=== PATIENT | female | born 1965 | race Caucasian/White ===

== ENCOUNTER → 2017-06-19 22:21 | Outpatient (CLI) | payer OTHER, SELFPAY | PROVIDERS: Family Provider Family Medicine; PCP Family Medicine; Visit Provider Internal Medicine Critical Care Medicine | DX: G47.33 Obstructive sleep apnea (adult) (pediatric) (principal) | CPT/HCPCS: 95810 ==

== ENCOUNTER → 2017-07-03 20:19 | Outpatient (CLI) | payer OTHER, SELFPAY | PROVIDERS: Family Provider Family Medicine; PCP Family Medicine; Visit Provider Internal Medicine Critical Care Medicine | DX: G47.33 Obstructive sleep apnea (adult) (pediatric) (principal) | CPT/HCPCS: 95811 ==

== ENCOUNTER → 2022-04-22 | Outpatient (CLI) | payer OTHER, SELFPAY ==
[2022-04-22 14:55] LABS: Absolute Lymphocyte Count 2.48 X10^3/uL (0.83-4.51); Absolute Neutrophil Count 4.8 X10^3/uL (2.0-7.7); Basophil# 0.02 X10^3/uL; Basophil% 0.3 % (0-1); Eosinophils% 1.3 % (0-5); Hematocrit 44.1 % (37-47); Hemoglobin 14.4 g/dL (12.0-15.0); Lymphocyte # 2.48 X10^3/ul (0.83-4.51); Lymphocyte % 31.4 % (19-41); Mean Corp Hgb Conc 32.7 g/dL (32-36); Mean Corpuscular Volume 88.9 fL (81-99); Mean Platelet Vol. 10.3 fl (6.2-12.0); Monocyte# 0.45 X10^3/uL; Monocyte% 5.7 % (0-10); NRBC Flagged by Analyzer 0 % (0-5); Neutrophil # 4.83 X10^3/uL (2.7-7.7); Neutrophil % 60.9 % (47-70); Platelet Count 208 K/mm3 (150-450); RBC Distribution Width SD 42.4 fl (35.1-43.9); Red Blood Count 4.96 M/mm3 (4.2-5.4); White Blood Count 7.9 K/mm3 (4.4-11.0)
[2022-04-22 15:09] LABS: International Normalized Ratio 1.1; Prothrombin Time (Protime)PT. 14.3 SECONDS (11.7-14.9)
[2022-04-22 15:16] LABS: Erythrocyte Sedimentation Rate 31 mm/hr (0-30)
[2022-04-22 15:42] LABS: Hemoglobin A1c 6.4 % (3.8-5.6)
[2022-04-22 16:13] LABS: HIV - WCH Non-Reactive (Nonreactive)
[2022-04-22 16:15] LABS: ALB/GLOB Ratio 0.7 RATIO (0.9-2.4); AST(SGOT) 102 U/L (15-37); Alanine Aminotransfer ALT/SGPT 186 U/L (13-56); Albumin, Serum 3.4 g/dL (3.2-5.0); Alkaline Phosphatase 85 U/L (45-117); Anion Gap 5 (5-15); BUN 10 mg/dL (7-18); BUN/Creat Ratio 14.9 RATIO (10-20); CRP 4.37 mg/L (0.0-3.0); Calcium,Total 8.5 mg/dL (8.5-10.1); Chloride 103 mmol/L (98-107); Creatinine, Serum 0.67 mg/dL (0.55-1.02); EST Glomerular Filtration Rate 97 mL/min (>60); Est Glom Filt Rate - Afr Amer 118 mL/min (>60); Ferritin 588 ng/mL (8-252); Globulin 4.6 g/dL (2.2-4.2); Glucose 239 mg/dL (74-106); LDH 203 U/L (84-246); Potassium 3.9 mmol/L (3.5-5.1); Sodium Level 137 mmol/L (136-145)
[2022-04-24 14:08] LABS: Anti-Centromere B Ab <0.2 AI (0.0-0.9); Anti-Chromatin <0.2 AI (0.0-0.9); Anti-Jo <0.2 AI (0.0-0.9); Anti-Scleroderma-70 AB <0.2 AI (0.0-0.9); RNP Ab 0.3 AI (0.0-0.9); SJOGREN'S Anti-SS-A test < 0.2 AI (0.0-0.9); SJOGREN'S Anti-SS-B test < 0.2 AI (0.0-0.9); Smith Ab <0.2 AI (0.0-0.9)
[2022-04-24 20:56] LABS: Anti-Mitochondrial AB <20.0 Units (0.0-20.0); Anti-dsDNA Ab <1 IU/mL (0-9)
[2022-04-30 09:07] LABS: Albumin 3.7 g/dL (2.9-4.4); Alpha-1-Globulins 0.3 g/dL (0.0-0.4); Alpha-2-Globulins 0.7 g/dL (0.4-1.0); Angiotensin Convert Enzyme 44 U/L (14-82); Ceruloplasmin 26.1 mg/dL (19.0-39.0); Cytoplasmic Ab (C-ANCA) <1:20 titer (Neg:<1:20); Gamma Globulin 1.5 g/dL (0.4-1.8); HEPATITIS B SURFACE AG Negative (Negative); Hep C Antibodies <0.1 s/co ratio (0.0-0.9); Hepatitis A IgM Antibody Negative (Negative); Hepatitis B Core AB IgM Negative (Negative); Immunoglobulin A 399 mg/dL (87-352); Immunoglobulin G 1533 mg/dL (586-1602); Immunoglobulin M 110 mg/dL (26-217); PROEL- TOTAL PROTEIN 7.3 g/dL (6.0-8.5)
[2022-04-30 10:48] LABS: AFP, Tumor Marker 6.5 ng/mL (0.0-9.2); Anti-Smooth Muscle ABS 13 Units (0-19); Copper, Serum or Plasma 109 ug/dL (80-158); Haptoglobin 116 mg/dL (33-346); IMMUNOFIXATION RESULT,S Comment: (.); Perinuclear Ab (P-ANCA) <1:20 titer (Neg:<1:20)
== END | disposition home or self-care (01) ==
PROVIDERS: PCP Physician Assistant; Visit Provider Internal Medicine Gastroenterology
DX: R79.89 Other specified abnormal findings of blood chemistry (principal)
CPT/HCPCS: 36415; 80053; 80074; 82105; 82140; 82164; 82390; 82525; 82728; 82784; 83010; 83036; 83516; 83615; 84165; 85025; 85610; 85652; 86140; 86225; 86235; 86256; 86334; 86703

== ENCOUNTER → 2022-05-10 | Outpatient (CLI) | payer OTHER, SELFPAY ==
--- NOTE | 2022-05-10 09:57 | US_ITS ---
STUDY: ABDOMINAL ULTRASOUND - ELASTOGRAPHY REASON FOR VISIT: Female, 57 years old. Hepatomegaly and fatty infiltration of the liver. TECHNIQUE: Liver stiffness measurements were obtained on a [employer]dc[employer] RS 85 ultrasound machine using a CA 1-7 probe following the SRU guidelines. 3 measurements were obtained using a 2-D-SWE method. TheIQR/M was 19 % suggesting a quality data set. TECHNICAL QUALITY: Adequate. COMPARISON: Comparison is made with prior study done earlier today. FINDINGS: Liver: Hepatomegaly and fatty infiltration of the liver. Median liver stiffness measured 14 kPa. US/Elastography Parenchyma/Organ IMPRESSION: Liver stiffness measures 14 kPa compatible with F3-F4 (Moderate to severe liver fibrosis) Metavir score. Electronically Signed: Timoteo Hernandez MD at 14:04 EST ,
--- NOTE | 2022-05-10 09:57 | US_ITS ---
STUDY: ABDOMINAL ULTRASOUND - RIGHT UPPER QUADRANT REASON FOR VISIT: Female, 57 years old . Abnormal liver function tests. TECHNIQUE: Ultrasound evaluation of the right upper quadrant was performed with real-time and static staley-scale imaging. TECHNICAL QUALITY: Adequate. COMPARISON: None. FINDINGS: Liver: The liver is enlarged and measures 19.8 cm. There is increased echogenicity consistent with fatty infiltration. The bile ducts are within normal limits. There is hepatic color flow. The direction of portal flow is hepatopetal. There is no demonstrated mass lesion. Gallbladder: The patient is status post cholecystectomy. Common Bile Duct (C.B.D.): The common bile duct measures 3.3 mm. Pancreas: Normal size of the head, body and tail of the pancreas. There is increased echogenicity of the pancreas. There is no demonstrated pancreatic mass or cyst. Right Kidney: Normal size of the right kidney. The right kidney measures 10.6 cm x 4.7 cm x 4.2 cm. Normal renal cortex. The right cortex measures 1.8 cm. There is no demonstrated renal mass or cyst. There is no right hydronephrosis. US/Abdomen Limited IMPRESSION: Hepatomegaly and diffuse fatty infiltration of the liver. Electronically Signed: Timoteo Hernandez MD at 14:03 EST ,
== END | disposition home or self-care (01) ==
PROVIDERS: PCP Physician Assistant; Visit Provider Internal Medicine Gastroenterology
DX: R79.89 Other specified abnormal findings of blood chemistry (principal)
CPT/HCPCS: 76705; 76981

== ENCOUNTER 2022-06-20 10:50 | Day surgery (SDC) | payer OTHER, SELFPAY ==
[2022-06-20] VITALS (7 sets, daily range): BP systolic 90–138; BP diastolic 69–95; PULSE 76–85; RESP 18; TEMP 36.2–36.6; O2SAT 92–95; BMI 58.7
[2022-06-20] MEDS: Lactated Ringers 1,000 ML 15 ML IV (11:42)
[2022-06-20 12:10] LABS: Bedside Glucose 102 mg/dL (74-106)
--- NOTE | 2022-06-20 12:29 | PCM.HP.BLA ---
History and Physical Date of Admission: 06/20/22 PATTI DOSS, is a 57 F who presents to the office today for Initial consult. Patti established with this clinic 04.15.22 with referral from her PCP for evaluation of persistent elevated LFT. Values at referral time ALT 133, AST 77, alk phos and lipid profile WNL. CT abd/pel at [facility] 01.08.21 with normal liver findings. PMH DMII (A1c 6.2 6.27.22); acid reflux; psoriatic arthritis (Humira start , prior to this she was using Tremfya for 6 months; HTN ([place] [facility]) ROS Const Constitutional: No anorexia, fatigue, fever(s), weight change or sleep problems Eyes Eyes: No change in vision ENT ENT: No abnormal hearing, difficulty swallowing, mouth lesions, tongue swelling or throat swelling Resp Respiratory: No cough or shortness of breath Cardio Cardiology: No chest pain at rest, chest pain with exertion, shortness of breath or dyspnea on exertion Gastro GI: No difficulty swallowing Genitourinary-Female: No difficulty urinating or burning urination Musc Musculoskeletal: No joint pain, joint swelling, muscle weakness or decreased muscle mass Skin Skin: No hair loss in leg, yellowing of the eye, itchy eyes, rash, skin ulcer or skin swelling Neuro Neurology: No abnormal hearing, abnormal movements, confusion, unsteady gait/balance or memory loss Psych Psychiatric: No anxiety, No confusion and No memory loss Endo Endocrine: No fatigue or weight change Aller/Imm Allergy/Immunologic: No itchy eyes, throat swelling or tongue swelling Everardo/Lymp Hematologic/Lymphatic: No easy bleeding, easy bruising or enlarged lymph nodes Exam Const General: cooperative and comfortable Nutritional Appearance: average body habitus and well nourished [facility] Head: normal to inspection Ears: hearing grossly normal bilaterally Nose: external nose normal Face and sinus: normal facial exam Mouth: oral mucosae normal Throat: posterior oropharynx normal Eyes General: appearance normal, both eyes and all related structures Neck Neck: normal visual inspection Chest Chest palpation & inspection: normal inspection of the chest and normal palpation of entire chest wall Resp Effort & Inspection: normal respiratory effort Auscultation: Bilateral: Clear to Auscultation Cardio Palpation: normal PMI Rate: regular rate Rhythm: regular rhythm GI Inspection: normal to inspection Auscultation: normal bowel sounds Percussion: normal to percussion Palpation: no hepatosplenomegaly Skin General: no rashes or lesions noted Neuro General: patient alert Extrem General: normal to inspection Psych Affect: normal affect Quality Reporting Tobacco Screening ([facility] 138) Smoking Status: Former smoker Assessment and Plan Assessment and Plan (1) LFT elevation: ?Status:?Acute ?Plan: The liver has a significant role in metabolism, digestion, detoxification, and elimination of substances from the body. The liver function tests typically include alanine transaminase (ALT) and aspartate transaminase (AST), alkaline phosphatase (ALP), gamma-glutamyl transferase (GGT), serum bilirubin, prothrombin time (PT), the international normalized ratio (INR), total protein and albumin. These tests can help determine an area of the liver where damage may be taking place and, depending on the pattern of elevation, can help organize a differential diagnosis. Elevations in ALT and AST disproportion to elevations in alkaline phosphatase and bilirubin denote hepatocellular disease. An elevation in alkaline phosphatase and bilirubin in disproportion to ALT and AST would characterize a cholestatic pattern. The actual function of the liver can be graded based on its ability to produce albumin as well as vitamin K-dependent clotting factors. Her liver function test are normal which is a good sign. Aminotransferase?includes AST and ALT. They are markers of hepatocellular injury. They participate in gluconeogenesis by catalyzing the transfer of amino groups from aspartic acid or alanine to ketoglutaric acid to produce oxaloacetic acid and pyruvic acid, respectively. AST is present as cytosolic and mitochondrial isoenzymes and is found in the liver, cardiac muscle, skeletal muscle, kidneys, brain, pancreas, lungs, leucocytes, and red cells. It is?not as sensitive or specific for the liver as ALT, and elevation in AST may be seen as secondary to nonhepatic causes as well.?AST activity in neonates and infants is approximately twice that in adults, but these decline to adult levels by approximately six months. ALT is a cytosolic enzyme that is found in high concentrations in the liver. The half-life of ALT is?approximately 47 ? 10 hours. ALT is usually higher than AST in most types of liver disease in which the activity of both enzymes is predominantly from the hepatocyte cytosol. Hepatocellular injury and not necessarily cell triggers the release of these enzymes into circulation.?Both AST and ALT values are higher in normal males than females.They also correlate with obesity with a normal reference range higher in those with higher body mass index. She does not drink any alcohol she does not have any family history of liver disease.? I did discuss with her that she may need a? liver biopsy, depending on the FibroScan biochemical work-up. (2) GERD (gastroesophageal reflux disease): ?Status:?Acute ?Plan: She will undergo an evaluation of her upper GI tract to see if she has an changes in stomach that may indicate chronic liver disease. We also evaluate her for Kim's esophagus. ? ? ? Orders: Orders HIV - [facility] Today R79.89 - Other specified abnormal findings of blood chemistry ? Comprehensive Metabolic Profil Today R79.89 - Other specified abnormal findings of blood chemistry ? CRP Today R79.89 - Other specified abnormal findings of blood chemistry ? Ferritin Today R79.89 - Other specified abnormal findings of blood chemistry ? LDH Today R79.89 - Other specified abnormal findings of blood chemistry ? Hemoglobin A1c Today R79.89 - Other specified abnormal findings of blood chemistry ? Prothrombin Time w/INR Today R79.89 - Other specified abnormal findings of blood chemistry ? CBC W/Diff, Automated Today R79.89 - Other specified abnormal findings of blood chemistry ? Erythrocyte Sed Rate Today R79.89 - Other specified abnormal findings of blood chemistry ? Anti-Mitochondrial AB Today R79.89 - Other specified abnormal findings of blood chemistry ? KD Comprehensive Panel Today R79.89 - Other specified abnormal findings of blood chemistry ? Hepatitis Panel Acute Today R79.89 - Other specified abnormal findings of blood chemistry ? Angiotensin Convert Enzyme Today R79.89 - Other specified abnormal findings of blood chemistry ? AFP, Tumor Marker Today R79.89 - Other specified abnormal findings of blood chemistry ? ANCA Today R79.89 - Other specified abnormal findings of blood chemistry ? Anti-Smooth Muscle ABS Today R79.89 - Other specified abnormal findings of blood chemistry ? Ceruloplasmin Today R79.89 - Other specified abnormal findings of blood chemistry ? Copper, Serum or Plasma Today R79.89 - Other specified abnormal findings of blood chemistry ? Haptoglobin Today R79.89 - Other specified abnormal findings of blood chemistry ? Ammonia Today R79.89 - Other specified abnormal findings of blood chemistry ? Abdomen Limited Today R79.89 - Other specified abnormal findings of blood chemistry ? Elastography Parenchyma/Organ Today R79.89 - Other specified abnormal findings of blood chemistry ? PAOLA + Protein Elect, Serum Today R79.89 - Other specified abnormal findings of blood chemistry ? Medications: Discontinued tramadol ?? Discontinued Reason:? Order Completed 50 mg? PO Q4H PRN pain ? ? aspirin ?? Discontinued Reason:? Order Completed 81 mg? PO QDAY ? ? cholecalciferol (vitamin D3) ?? Discontinued Reason:? Order Completed 1,000 units? PO ONCE ? ? I have examined the patient and the H&P has been reviewed. There are no clinical changes since date of exam.
--- NOTE | 2022-06-20 12:30 | IMM_PTH ---
PATIENT: SHARA DOSS LOC: EN U#:[id number] AGE/SX: 57/F ROOM: RE06/20/[address]: Dr. Aman Bruce DO : 1965 BED: DIS: 06/20/2022 SPEC #: [id number] RECD: 06/20/22 14:21 STATUS: HARVEY REQ #: [id number] GILA: 06/20/22 12:[address]: Aman Bruce DEPT: IMMUNOHISTOCHEMISTRY RECD BY: Jessi Madrigal ENTERED: 06/20/22 14:21 SP TYPE: IMMUNO OTHR DR: ANGELES Ferrell Tissues: B - Stomach, NOS Procedures: H Pylori (initial) PHYSICIAN & INSTITUTION [place] [address] SPECIMEN INFORMATION: Tissue Source: B ? Gastric body biopsy Clinical Info: LEFT elevation, GERD Specimen Number: [id number] CPT code: 21444 METHODOLOGY: Deparaffinized sections of prefer/formalin-fixed tissue or PAP/DQ stained slides are incubated with monoclonal/polyclonal antibodies/oligonucleotide probes. Localization is made via biotin free immunoperoxidase method. Appropriate controls are performed and reacted as expected. Results on target cell population are indicated in the following table: RESULTS: ANTIBODY / CLONE RESULT Block B H Pylori (polyclonal) negative These tests were developed and their performance characteristics determined by [facility]. They may not have been cleared or approved by the U.S. Food and Drug Administration. The FDA has determined that such clearance or approval is not necessary. The above immunohistochemical/dualISH markers are ordered and reviewed by the Pathologist. INTERPRETATION: B. Gastric body, biopsy: Negative for Helicobacter pylori organisms. AM:saba 06/21/2022
--- NOTE | 2022-06-20 12:30 | EGD_PTH ---
PATIENT: SHARA DOSS LOC: EN U#:[id number] AGE/SX: 57/F ROOM: RE06/20/[address]: Dr. Aman Bruce DO : 1965 BED: DIS: 06/20/2022 SPEC #: [id number] RECD: 06/20/22 13:34 STATUS: HARVEY REAnnie #: [id number] GILA: 06/20/22 12:[address]: Aman Bruce DEPT: SURGICAL PATHOLOGY RECD BY: Nellie Fernandez ENTERED: 06/20/22 14:03 SP TYPE: EGD BIOPSY OT DR: ANGELES Ferrell Tissues: A - Duodenum, NOS B - Gastric mucous membrane Procedures: Surgery Specimen Level IV HEADER OPERATION: [place] [place] biopsies PRE-OP DIAGNOSIS: LFT elevation, GERD TISSUE SUBMITTED: A ? Duodenum biopsy, B ? Gastric body biopsy MICROSCOPIC DIAGNOSIS A. Duodenum, biopsy: Fragments of duodenal mucosa, no pathologic diagnosis. B. Gastric body, biopsy: Mild gastritis. See microscopic description and comment. ELISABET:saba 06/21/2022 COMMENT B. The results of immunohistochemistry for Helicobacter pylori will be reported separately ([id number]). MICROSCOPIC DESCRIPTION Slides are reviewed. B. The specimen shows fragments of gastric mucosa with chronic inflammatory cell infiltrates in the lamina propria consisting of lymphocytes and plasma cells, consistent with mild chronic gastritis. GROSS DESCRIPTION A - Received in fixative is one container labeled with the patient's name and designated duodenal biopsy. The specimen consists of two irregular fragments of light montemayor soft tissue that in aggregate measure 0.6 x 0.3 x 0.1 cm. The specimen is totally submitted in one cassette. B - Received in fixative is one container labeled with the patient's name and designated gastric body biopsy. The specimen consists of multiple irregular fragments of light montemayor soft tissue that in aggregate measure 1.0 x 0.3 x 0.1 cm. The specimen is totally submitted in one cassette. / ELISABET:saba 06/20/2022 TC:3 CPT: 48908 x2
--- NOTE | 2022-06-20 12:47 | OP.EGD_ITS ---
Patient Name: Patti Gage Procedure Date: 06/20/2022 12:27 PM Date of : 1965 Age: 57 Procedure: Upper GI endoscopy Indications: Dyspepsia, Heartburn, Suspected esophageal reflux Providers: Aman Bruce DO Medicines: Monitored Anesthesia Care Patient Profile: This is a 57 year old female. Refer to note in patient chart for documentation of history and physical. Patient has symptoms of chronic epigastric abdominal pain, chronic dyspepsia and chronic nausea. Complications: No immediate complications. Procedure: Pre-Anesthesia Assessment: - Prior to the procedure, a History and Physical was performed, and patient medications and allergies were reviewed. The patient is competent. The risks and benefits of the procedure and the sedation options and risks were discussed with the patient. All questions were answered and informed consent was obtained. Patient identification and proposed procedure were verified by the physician in the pre-procedure area. Mental Status Examination: alert and oriented. Airway Examination: normal oropharyngeal airway and neck mobility. Respiratory Examination: clear to auscultation. CV Examination: normal. Prophylactic Antibiotics: The patient does not require prophylactic antibiotics. Prior Anticoagulants: The patient has taken no previous anticoagulant or antiplatelet agents. After reviewing the risks and benefits, the patient was deemed in satisfactory condition to undergo the procedure. The anesthesia plan was to use monitored anesthesia care (MAC). Immediately prior to administration of medications, the patient was re-assessed for adequacy to receive sedatives. The heart rate, respiratory rate, oxygen saturations, blood pressure, adequacy of pulmonary ventilation, and response to care were monitored throughout the procedure. The physical status of the patient was re-assessed after the procedure. After obtaining informed consent, the endoscope was passed under direct vision. Throughout the procedure, the patient's blood pressure, pulse, and oxygen saturations were monitored continuously. The Endoscope was introduced through the mouth, and advanced to the second part of duodenum. The upper GI endoscopy was accomplished without difficulty. The patient tolerated the procedure well. Scope In: 12:34:19 PM Scope Out: 12:38:50 PM Total Procedure Duration Time 0 hours 4 minutes 31 seconds Findings: LA Grade A (one or more mucosal breaks less than 5 mm, not extending between tops of 2 mucosal folds) esophagitis with no bleeding was found 35 to 36 cm from the incisors. Moderate portal hypertensive gastropathy was found in the stomach. Diffuse bile gastritis was also seen. Biopsies were taken with a cold forceps for histology. Verification of patient identification for the specimen was done. Estimated blood loss was minimal. Patchy mildly erythematous mucosa without active bleeding and with no stigmata of bleeding was found in the duodenal bulb. Biopsies were taken with a cold forceps for histology. Verification of patient identification for the specimen was done. Estimated blood loss was minimal. Impression: - LA Grade A reflux esophagitis. -Bile gastritis iopsied. - Erythematous duodenopathy. Biopsied. Recommendation: - Discharge patient to home. - Resume previous diet. - Continue present medications. - Await pathology results. Procedure Code(s): --- Professional --- 67039, Esophagogastroduodenoscopy, flexible, transoral; with biopsy, single or multiple CPT copyright 2017 [employer]. All rights reserved. The codes documented in this report are preliminary and upon agriculture professor review may be revised to meet current compliance requirements. Aman Bruce DO 06/20/2022 12:47:16 PM This report has been signed electronically. Number of Addenda: 0 Note Initiated On: 06/20/2022 12:27 PM
--- NOTE | 2022-06-20 12:48 | OP.CCLET_ITS ---
06/20/2022 Ema Swift Re : Upper GI endoscopy procedure for Patti Gage Deakim Swift This procedure was performed on June. My impressions and recommendations are as follows: Impressions : - LA Grade A reflux esophagitis. -Bile gastritis iopsied. - Erythematous duodenopathy. Biopsied. Recommendations : - Discharge patient to home. - Resume previous diet. - Continue present medications. - Await pathology results. My findings are described in the full procedure note, which is enclosed. If I can be of further assistance, please feel free to contact me at . Sincerely, Aman Bruce, 06/20/2022 12:47:16 PM This report has been signed electronically.
== END 2022-06-20 13:35 | disposition home or self-care (01) ==
LOC: EN 10:53 → AC 10:55
PROVIDERS: PCP Physician Assistant; Referring Provider Internal Medicine Gastroenterology; Visit Provider Internal Medicine Gastroenterology
PROC: 0DJ08ZZ Inspection of Upper Intestinal Tract, Via Natural or Artificial Opening Endoscopic (ICD-10-PCS; CPT 43235; principal; 2022-06-20 12:25)
DX: K31.89 Other diseases of stomach and duodenum (principal); J44.9 Chronic obstructive pulmonary disease, unspecified; E11.9 Type 2 diabetes mellitus without complications; K21.00 Gastro-esophageal reflux disease with esophagitis, without bleeding; K29.70 Gastritis, unspecified, without bleeding; I10 Essential (primary) hypertension; G47.33 Obstructive sleep apnea (adult) (pediatric); Z79.899 Other long term (current) drug therapy; Z79.84 Long term (current) use of oral hypoglycemic drugs; Z87.891 Personal history of nicotine dependence
CPT/HCPCS: 43239; 82962; 88305; 88342; J7120

== ENCOUNTER 2022-06-28 07:44 | Outpatient (CLI) | payer OTHER, SELFPAY ==
[2022-06-28] VITALS (9 sets, daily range): BP systolic 120–149; BP diastolic 74–95; PULSE 72–85; RESP 14–20; TEMP 36.6; O2SAT 91–97; BMI 54.5
--- NOTE | 2022-06-28 | LIV_PTH ---
PATIENT: SHARA DOSS LOC: CT U#:[id number] AGE/SX: 57/F ROOM: RE06/28/[address]: Dr. Aman Bruce DO : 1965 BED: DIS: 06/28/2022 SPEC #: [id number] RECD: 06/28/22 09:53 STATUS: HARVEY REQ #: [id number] GILA: 06/28/22 00:[address]: Aman Bruce DEPT: SURGICAL PATHOLOGY RECD BY: Micah Marti ENTERED: 06/28/22 09:53 SP TYPE: LIVER RES OTHR DR: ANGELES Ferrell Tissues: Liver, NOS Procedures: PAS with Diastase (control) Trichrome (control) Special Stain Group II PAS Stain (control) Surgery Specimen Level V Retic (control) Iron Stain (control) HEADER OPERATION: CT-guided liver biopsy PRE-OP DIAGNOSIS: Liver disease TISSUE SUBMITTED: Liver 18-gauge x3 MICROSCOPIC DIAGNOSIS Liver, CT-guided core biopsy: Consistent with cirrhosis. Extensive macro- and microvesicular steatosis. See microscopic description and comment. Ysabel 07/01/2022 COMMENT Correlation with clinical, radiologic, laboratory findings and appropriate follow up are necessary. MICROSCOPIC DESCRIPTION Slides are reviewed. The specimen shows liver parenchymal tissue with distortion of normal lobular architecture into multiple nodules. Hepatocytes in the nodule show extensive macro- and microvesicular steatosis. Fibrous septae in between the nodules show moderate chronic inflammation. Focal interface inflammation is also noted. Iron stain shows focal iron deposit (1+) in the hepatocytes. Reticulin and trichrome stains highlight the fibrous septae in between the hepatocyte nodules. PAS and PASD stains do not show any abnormal accumulation of protein. All stains are performed with appropriate matched controls GROSS DESCRIPTION Received is one container labeled with the patient's name and not further designated. The specimen consists of multiple elongated fragments of montemayor soft tissue that in aggregate measure 1.5 x 0.3 x 0.1 cm. The specimen is totally submitted in one cassette. / ELISABET:saba 06/28/2022 TC:5 CPT: 88655, 79072 x5
--- NOTE | 2022-06-28 07:54 | CT_ITS ---
PROCEDURE: CT DIRECTED CORE LIVER BIOPSY INDICATION: Female, 57 years old. Hepatomegaly and fatty infiltration of the liver. PHYSICIAN: CONSENT: Written informed consent was obtained having explained the risks, benefits and alternatives in detail with the patient who accepted the risks and agreed to proceed. Laboratory review and clinical assessment was performed. CONSCIOUS SEDATION PROTOCOL: The Drugs used were: 2 mg Versed, IV., and 50 mcg Fentanyl, IV. The sedation time was: 17 minutes. Conscious sedation was started at 9:06 AM and terminated at 9:23 AM. The conscious sedation protocol was independently monitored. RADIATION DOSAGE (If Supplied By Facility): CTDIvol = ( 42 ) mGy, DLP = ( 911.34 ) mGycm Individualized dose optimization techniques were used for this CT. TECHNIQUE: Using CT image guidance with image documentation, a suitable location in the left lobe of the liver was identified. Using an anterior approach, puncture of the liver was uneventful with an 18-gauge core needle system. 3, 18-gauge core samples were obtained, and submitted in formalin to the pathologist for further assessment. Followup CT scan revealed no distinct sequelae. CT/Biopsy/Inj or Needle Placement IMPRESSION: 1. CT directed core needle biopsy of the liver, using CT image guidance with image documentation as described. 2. Conscious Sedation protocol utilized with independent monitoring. Electronically Signed: Timoteo Hernandez MD at 9:42 EST ,
[2022-06-28 07:57] LABS: Platelet Count 185 K/mm3 (150-450)
[2022-06-28 08:48] LABS: International Normalized Ratio 1.1; Prothrombin Time (Protime)PT. 13.9 SECONDS (11.7-14.9)
[2022-06-28] MEDS: Midazolam 2 MG/2 ML Syringe IV (09:06)
[2022-06-28] MEDS: fentaNYL 100 MCG/2 ML Ampul IV (09:06)
[2022-06-28] MEDS: Lidocaine 2% (20 ml mdv) 20 ML Vial INFILT (09:21)
== END 2022-06-28 23:59 | disposition home or self-care (01) ==
PROVIDERS: PCP Physician Assistant; Referring Provider Internal Medicine Gastroenterology; Visit Provider Internal Medicine Gastroenterology
DX: K76.0 Fatty (change of) liver, not elsewhere classified (principal); J44.9 Chronic obstructive pulmonary disease, unspecified; E11.9 Type 2 diabetes mellitus without complications; K21.9 Gastro-esophageal reflux disease without esophagitis; Z79.84 Long term (current) use of oral hypoglycemic drugs; Z87.891 Personal history of nicotine dependence
CPT/HCPCS: 47000; 36415; 77012; 85049; 85610; 85730; 88307; 88313; 99156; J7050; A4216

== ENCOUNTER → 2022-07-10 | Outpatient (CLI) | payer OTHER, SELFPAY ==
[2022-07-10 16:39] LABS: Absolute Lymphocyte Count 3.91 X10^3/uL (0.83-4.51); Absolute Neutrophil Count 4.4 X10^3/uL (2.0-7.7); Basophil# 0.01 X10^3/uL; Basophil% 0.1 % (0-1); Eosinophil# 0.16 X10^3/uL; Eosinophils% 1.8 % (0-5); Hematocrit 44.2 % (37-47); Hemoglobin 15.2 g/dL (12.0-15.0); Lymphocyte # 3.91 X10^3/ul (0.83-4.51); Mean Corp Hgb Conc 34.4 g/dL (32-36); Mean Corpuscular Hgb 29.5 pg (27.0-32.0); Mean Corpuscular Volume 85.8 fL (81-99); Mean Platelet Vol. 9.8 fl (6.2-12.0); Monocyte# 0.59 X10^3/uL; Monocyte% 6.5 % (0-10); NRBC Flagged by Analyzer 0 % (0-5); Neutrophil % 48.3 % (47-70); Platelet Count 235 K/mm3 (150-450); RBC Distribution Width CV 12.6 % (11.6-14.6); RBC Distribution Width SD 39.6 fl (35.1-43.9); Red Blood Count 5.15 M/mm3 (4.2-5.4); White Blood Count 9.1 K/mm3 (4.4-11.0)
[2022-07-10 16:54] LABS: Erythrocyte Sedimentation Rate 46 mm/hr (0-30)
[2022-07-10 17:00] LABS: Prothrombin Time (Protime)PT. 13.2 SECONDS (11.7-14.9)
[2022-07-10 17:26] LABS: ALB/GLOB Ratio 0.8 RATIO (0.9-2.4); AST(SGOT) 73 U/L (15-37); Alanine Aminotransfer ALT/SGPT 134 U/L (13-56); Albumin, Serum 3.8 g/dL (3.2-5.0); Alkaline Phosphatase 94 U/L (45-117); Anion Gap 7 (5-15); BUN 16 mg/dL (7-18); BUN/Creat Ratio 25.9 RATIO (10-20); CRP 9.68 mg/L (0.0-3.0); Calcium,Total 9.6 mg/dL (8.5-10.1); Chloride 102 mmol/L (98-107); Creatinine, Serum 0.62 mg/dL (0.55-1.02); EST Glomerular Filtration Rate 107 mL/min (>60); Est Glom Filt Rate - Afr Amer 129 mL/min (>60); Globulin 4.8 g/dL (2.2-4.2); Glucose 105 mg/dL (74-106); LDH 197 U/L (84-246); Potassium 3.8 mmol/L (3.5-5.1); Protein, Total 8.6 g/dL (6.4-8.2); Sodium Level 137 mmol/L (136-145)
== END | disposition home or self-care (01) ==
LOC: LAB 16:18
PROVIDERS: PCP Physician Assistant; Visit Provider Nurse Practitioner Adult Health
DX: K74.60 Unspecified cirrhosis of liver (principal)
CPT/HCPCS: 36415; 80053; 82140; 83615; 85025; 85610; 85652; 86140

== ENCOUNTER → 2022-10-18 | Outpatient (CLI) | payer OTHER, SELFPAY ==
[2022-10-18 11:53] LABS: Erythrocyte Sedimentation Rate 41 mm/hr (0-30)
[2022-10-18 11:55] LABS: Absolute Lymphocyte Count 1.84 X10^3/uL (0.83-4.51); Absolute Neutrophil Count 6.5 X10^3/uL (2.0-7.7); Basophil# 0.02 X10^3/uL; Basophil% 0.2 % (0-1); Eosinophil# 0.22 X10^3/uL; Eosinophils% 2.5 % (0-5); Hematocrit 44.2 % (37-47); Hemoglobin 14.5 g/dL (12.0-15.0); Lymphocyte # 1.84 X10^3/ul (0.83-4.51); Lymphocyte % 20.6 % (19-41); Mean Corp Hgb Conc 32.8 g/dL (32-36); Mean Corpuscular Hgb 28.8 pg (27.0-32.0); Mean Corpuscular Volume 87.7 fL (81-99); Mean Platelet Vol. 9.5 fl (6.2-12.0); Monocyte# 0.38 X10^3/uL; Monocyte% 4.2 % (0-10); NRBC Flagged by Analyzer 0 % (0-5); Neutrophil # 6.45 X10^3/uL (2.7-7.7); Neutrophil % 72.1 % (47-70); Platelet Count 240 K/mm3 (150-450); RBC Distribution Width CV 13.3 % (11.6-14.6); RBC Distribution Width SD 42.7 fl (35.1-43.9); Red Blood Count 5.04 M/mm3 (4.2-5.4)
[2022-10-18 12:00] LABS: Prothrombin Time (Protime)PT. 13.4 SECONDS (11.7-14.9)
[2022-10-18 12:19] LABS: ALB/GLOB Ratio 0.7 RATIO (0.9-2.4); AST(SGOT) 25 U/L (15-37); Alanine Aminotransfer ALT/SGPT 44 U/L (13-56); Albumin, Serum 3.4 g/dL (3.2-5.0); Alkaline Phosphatase 76 U/L (45-117); Anion Gap 7 (5-15); BUN 15 mg/dL (7-18); BUN/Creat Ratio 26.2 RATIO (10-20); CRP 9.29 mg/L (0.0-3.0); Calcium,Total 9.3 mg/dL (8.5-10.1); Chloride 104 mmol/L (98-107); Creatinine, Serum 0.57 mg/dL (0.55-1.02); EST Glomerular Filtration Rate 116 mL/min (>60); Est Glom Filt Rate - Afr Amer 141 mL/min (>60); Globulin 4.9 g/dL (2.2-4.2); Glucose 143 mg/dL (74-106); LDH 199 U/L (84-246); Potassium 3.9 mmol/L (3.5-5.1); Protein, Total 8.3 g/dL (6.4-8.2); Sodium Level 138 mmol/L (136-145)
[2022-10-18 12:55] LABS: Hemoglobin A1c 5.9 % (3.8-5.6)
== END | disposition home or self-care (01) ==
LOC: LAB 11:07
PROVIDERS: PCP Physician Assistant; Referring Provider Internal Medicine Gastroenterology; Visit Provider Internal Medicine Gastroenterology
DX: K74.60 Unspecified cirrhosis of liver (principal)
CPT/HCPCS: 36415; 80053; 82140; 83036; 83615; 85025; 85610; 85652; 86140

== ENCOUNTER → 2023-01-31 | Outpatient (CLI) | payer OTHER, SELFPAY ==
--- NOTE | 2023-02-02 05:41 | PFTCOMP_ITS ---
COMPLETE PULMONARY FUNCTION TEST INTERPRETATION Brief HPI: Patient is a 57-year-old female, currently under the care of Kavita Haney, who presents to [facility] for complete pulmonary function tests secondary to diagnosis of dyspnea. Respiratory therapist reports good effort and reproducible results. Interpretation: Forced expiration spirometry shows no large airways obstructive ventilatory defect with an FEV1 of 37% predicted. There is no significant bronchodilator response by strict ATS criteria. Spirograms are of good quality and plateau slowly, indicating slowly emptying areas of the lungs. The respiratory flow volume loop shows decreased expiratory flow rates at all lung volumes consistent with airway obstruction. Lung volumes by body plethysmography show a decreased total lung capacity at 2.66 L, 65% predicted. FRC and RV are elevated out of proportion. Lung volume measurements are consistent with air-trapping. Diffusion capacity by carbon monoxide is decreased at 55% predicted. The airway resistance is elevated. Compared to previous pulmonary function tests from 2018, there is been a significant worsening in all measured values. Impression: Severe restrictive ventilatory defect with a symmetric reduction in diffusion capacity and some mild signs of concomitant small airways obstruction
== END | disposition home or self-care (01) ==
LOC: PSN 09:26
PROVIDERS: PCP Physician Assistant; Referring Provider Nurse Practitioner Acute Care; Visit Provider Nurse Practitioner Acute Care
DX: R06.02 Shortness of breath (principal)
CPT/HCPCS: 94060; 94726; 94729

== ENCOUNTER → 2023-03-04 | Outpatient (CLI) | payer OTHER, SELFPAY | END | disposition home or self-care (01) | LOC: SL 10:33 | PROVIDERS: PCP Physician Assistant; Visit Provider Nurse Practitioner Acute Care | DX: R69 Illness, unspecified (principal) ==

== ENCOUNTER → 2023-05-16 | Outpatient (CLI) | payer OTHER, SELFPAY ==
--- NOTE | 2023-05-16 09:02 | US_ITS ---
STUDY: ABDOMINAL ULTRASOUND - RIGHT UPPER QUADRANT; ELASTOGRAPHY REASON FOR VISIT: Female, 58 years old. History of cirrhosis. TECHNIQUE: Ultrasound evaluation of the right upper quadrant was performed with real-time and static staley-scale imaging. Point quantification shear wave elastography was performed ([employer]). TECHNICAL QUALITY: Adequate. COMPARISON: Comparison is made with prior study dated May 10, 2022. FINDINGS: Liver: The liver is enlarged and measures 22 cm. There is increased echogenicity consistent with fatty infiltration. The bile ducts are within normal limits. There is hepatic color flow. The direction of portal flow is hepatopetal. There is no demonstrated mass lesion. Median liver stiffness measured 14.3 kPa. Gallbladder: The patient is status post cholecystectomy. Common Bile Duct (C.B.D.): The common bile duct measures 8.2 mm. Pancreas: There is increased echogenicity of the pancreas. There is no demonstrated pancreatic mass or cyst. Right Kidney: Normal size of the right kidney. The right kidney measures 12.37 x 5.4 cm x 4.2 cm. Normal renal cortex. The right cortex measures 1.5 cm. There is no demonstrated renal mass or cyst. There is no right hydronephrosis. US/ABD Limited w/ Elastography IMPRESSION: 1. Liver stiffness measures 14.3 kPa compatible with F3-F4 (Moderate to severe liver fibrosis) Metavir score. 2. Hepatomegaly and fatty infiltration of the liver. Electronically Signed: Timoteo Hernandez MD at 10:52 EST ,
[2023-05-16 11:28] LABS: Absolute Lymphocyte Count 2.26 X10^3/uL (0.83-4.51); Absolute Neutrophil Count 5.6 X10^3/uL (2.0-7.7); Basophil# 0.04 X10^3/uL; Basophil% 0.5 % (0-1); Eosinophil# 0.18 X10^3/uL; Eosinophils% 2.1 % (0-5); Hematocrit 43.5 % (37-47); Hemoglobin 13.9 g/dL (12.0-15.0); Lymphocyte # 2.26 X10^3/ul (0.83-4.51); Lymphocyte % 26.1 % (19-41); Mean Corpuscular Hgb 27.3 pg (27.0-32.0); Mean Corpuscular Volume 85.3 fL (81-99); Mean Platelet Vol. 10.1 fl (6.2-12.0); Monocyte# 0.58 X10^3/uL; Monocyte% 6.7 % (0-10); NRBC Flagged by Analyzer 0 % (0-5); Neutrophil # 5.58 X10^3/uL (2.7-7.7); Neutrophil % 64.3 % (47-70); Platelet Count 242 K/mm3 (150-450); RBC Distribution Width CV 13.3 % (11.6-14.6); RBC Distribution Width SD 41.3 fl (35.1-43.9); White Blood Count 8.7 K/mm3 (4.4-11.0)
[2023-05-16 12:00] LABS: ALB/GLOB Ratio 0.8 RATIO (0.9-2.4); AST(SGOT) 20 U/L (15-37); Alanine Aminotransfer ALT/SGPT 30 U/L (13-56); Albumin, Serum 3.8 g/dL (3.2-5.0); Alkaline Phosphatase 72 U/L (45-117); Anion Gap 4 (5-15); BUN 19 mg/dL (7-18); BUN/Creat Ratio 37.3 RATIO (10-20); Calcium,Total 9.4 mg/dL (8.5-10.1); Chloride 107 mmol/L (98-107); Creatinine, Serum 0.51 mg/dL (0.55-1.02); EST Glomerular Filtration Rate 133 mL/min (>60); Est Glom Filt Rate - Afr Amer 161 mL/min (>60); Globulin 4.5 g/dL (2.2-4.2); Glucose 95 mg/dL (74-106); Protein, Total 8.3 g/dL (6.4-8.2); Sodium Level 141 mmol/L (136-145)
[2023-05-17 10:44] LABS: AFP, Tumor Marker 4.1 ng/mL (0.0-9.2)
== END | disposition home or self-care (01) ==
PROVIDERS: PCP Physician Assistant; Referring Provider Internal Medicine; Visit Provider Internal Medicine
DX: K74.60 Unspecified cirrhosis of liver (principal)
CPT/HCPCS: 36415; 76705; 76981; 80053; 82105; 85025; 85610

== ENCOUNTER → 2023-10-24 | Outpatient (CLI) | payer OTHER, SELFPAY ==
[2023-10-24 11:20] LABS: Absolute Lymphocyte Count 2.63 X10^3/uL (0.83-4.51); Absolute Neutrophil Count 4.9 X10^3/uL (2.0-7.7); Basophil# 0.02 X10^3/uL; Basophil% 0.2 % (0-1); Eosinophil# 0.12 X10^3/uL; Eosinophils% 1.5 % (0-5); Hematocrit 42.3 % (37-47); Hemoglobin 13.5 g/dL (12.0-15.0); Lymphocyte # 2.63 X10^3/ul (0.83-4.51); Mean Corp Hgb Conc 31.9 g/dL (32-36); Mean Corpuscular Hgb 26.8 pg (27.0-32.0); Mean Corpuscular Volume 83.9 fL (81-99); Mean Platelet Vol. 9.8 fl (6.2-12.0); Monocyte# 0.51 X10^3/uL; Monocyte% 6.2 % (0-10); NRBC Flagged by Analyzer 0 % (0-5); Neutrophil # 4.93 X10^3/uL (2.7-7.7); Neutrophil % 59.9 % (47-70); Platelet Count 268 K/mm3 (150-450); RBC Distribution Width CV 13.3 % (11.6-14.6); RBC Distribution Width SD 40.8 fl (35.1-43.9); Red Blood Count 5.04 M/mm3 (4.2-5.4); White Blood Count 8.2 K/mm3 (4.4-11.0)
[2023-10-24 11:30] LABS: International Normalized Ratio 1.1; Prothrombin Time (Protime)PT. 13.9 SECONDS (11.7-14.9)
[2023-10-24 11:50] LABS: ALB/GLOB Ratio 0.8 RATIO (0.9-2.4); AST(SGOT) 16 U/L (15-37); Alanine Aminotransfer ALT/SGPT 27 U/L (13-56); Albumin, Serum 3.7 g/dL (3.2-5.0); Alkaline Phosphatase 72 U/L (45-117); Anion Gap 9 (5-15); BUN 23 mg/dL (7-18); BUN/Creat Ratio 40.9 RATIO (10-20); Calcium,Total 8.9 mg/dL (8.5-10.1); Chloride 102 mmol/L (98-107); Creatinine, Serum 0.56 mg/dL (0.55-1.02); EST Glomerular Filtration Rate 118 mL/min (>60); Est Glom Filt Rate - Afr Amer 143 mL/min (>60); Globulin 4.4 g/dL (2.2-4.2); Glucose 107 mg/dL (74-106); Potassium 4.2 mmol/L (3.5-5.1); Protein, Total 8.1 g/dL (6.4-8.2); Sodium Level 137 mmol/L (136-145)
== END | disposition home or self-care (01) ==
LOC: LAB 10:57
PROVIDERS: PCP Physician Assistant; Referring Provider Internal Medicine; Visit Provider Internal Medicine
DX: K74.60 Unspecified cirrhosis of liver (principal); E66.01 Morbid (severe) obesity due to excess calories
CPT/HCPCS: 36415; 80053; 82140; 82306; 85025; 85610

== ENCOUNTER 2023-11-24 05:57 | Day surgery (SDC) | payer OTHER, SELFPAY ==
[2023-11-24] VITALS (7 sets, daily range): BP systolic 113–144; BP diastolic 64–101; PULSE 75–83; RESP 16–20; TEMP 36.2–37.4; O2SAT 92–97; BMI 55.2
[2023-11-24] MEDS: Lactated Ringers 1,000 ML 15 ML IV (06:15)
--- NOTE | 2023-11-24 06:34 | PCM.PRE.AN2 ---
ASA Classification* ASA Classification ASA Classification: 3 Assessment & Plan Anesthesia* Anesthesia Assessment Anesthesia Assessment: Discussed sedation and/or anesthesia options, risks, benefits, and alternatives with patient/parents/legal guardian/POA. Questions invited. The patient/parents/legal guardian/POA seems to understand and agrees to proceed with anesthesia plan. Reviewed the physical assessment, medical history, allergy history and patient home medications list prior to surgery/procedure/anesthetic and documented any changes. Performed airway and anesthesia risk assessments. Anesthesia Type Anesthesia Type: MAC Anesthesia Focused Assessment* Temperature: 97.1 F Pulse Rate: 83 Blood Pressure: 123/64 Respiratory Rate: 16 Pulse Ox: 92 Airway Assessment Mouth opens: >3 cm Mallampati Score: II Focused Labs Anesthesia Preop lab: CBC WBC 8.2 K/mm3 (4.4-11.0) 10/24/23 10:59 RBC 5.04 M/mm3 (4.2-5.4) 10/24/23 10:59 Hgb 13.5 g/dL (12.0-15.0) 10/24/23 10:59 Hct 42.3 % (37-47) 10/24/23 10:59 Plt Count 268 K/mm3 (150-450) 10/24/23 10:59 CHEMISTRY Potassium 4.2 mmol/L (3.5-5.1) 10/24/23 10:59 Sodium 137 mmol/L (136-145) 10/24/23 10:59 BUN 23 mg/dL (7-18) H 10/24/23 10:59 Creatinine 0.56 mg/dL (0.55-1.02) 10/24/23 10:59 Glucose 107 mg/dL (74-106) H 10/24/23 10:59 POC Glucose 102 mg/dL (74-106) 06/20/22 11:30 COAG PT 13.9 SECONDS (11.7-14.9) 10/24/23 10:59 Pre-Assessment Diagnosis/Proposed Procedure Planned Operative Procedure(s): CSCOPE, EGD Anesthesia History 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 When Was Last Pacemaker Check QUESTION #4 FULL TEXT: You/Your Family Experience fever (hyperthermia) with Anesthesia Last Oral Intake Last Oral intake: Last Oral Intake NPO since 03:30 11/24/23 06:12 Meds taken in AM with sips of Yes 11/24/23 06:12 water? Meds patient instructed to take am of surgery PONV PONV - clip and hanger attacher: PONV - clip and hanger attacher Female Yes 11/19/23 12:35 HX of Motion Sickness No 11/19/23 12:35 HX of N/V After Surgery No 11/19/23 12:35 Non-Smoker Yes 11/19/23 12:35 Duration of Surgery greater No 11/19/23 12:35 than 60 minutes Number of Risk Factors 2 11/19/23 12:35 PONV Score Moderate Risk 11/19/23 12:35 Height & Weight Height & Weight: Anesthesia: Height & Weight Height 4 ft 11 in 11/24/23 06:12 Weight: 124 kg 11/24/23 06:12 Body Mass Index (BMI) 55.2 11/24/23 06:12 Respiratory Assessment Respiratory Assessment - clip and hanger attacher: Respiratory Tract Infection Hx - clip and hanger attacher Hx Respiratory Tract Infection No 11/19/23 12:35 STOP Sleep Apnea STOP Sleep Apnea - clip and hanger attacher: STOP Sleep Apnea - clip and hanger attacher Hx Hypertension Yes: CONTROLLED WITH MED 11/19/23 12:35 Hx Sleep Apnea Yes 11/19/23 12:35 CPAP No 11/19/23 12:35 BIPAP Yes 11/19/23 12:35 Do you snore loudly (louder than talking or can be heard Do you often feel tired/ fatigued/ sleepy during daytime? Has anyone observed you stop breathing during sleep? STOP Results Positive 11/19/23 12:35 QUESTION #5 FULL TEXT : Do you snore loudly (louder than talking or can be heard through closed doors)? 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 Specify any problems Hx of Preganancy in last 3 N/A 11/19/23 12:35 Months Nurse Filling Out Transfusion NBUCHER 11/19/23 12:35 & Questions: Date: 11/19/23 11/19/23 12:35 Time: 12:37 11/19/23 12:35 Patient unable to answer at this time (ie. confused, unrespo /Reproduction History /Reproductive History - clip and hanger attacher: /Reproductive Hx- clip and hanger attacher Hx Now Gestational Age (in weeks): EDC: Hx Hx Para Hx Section SAB No 06/17/22 10:57 Active Medications Active Medications: Current Medications Generic Name Dose Route Start Last Admin Trade Name Freq PRN Reason Stop Dose Admin Lactated Ringer's 1,000 mls @ 15 mls/hr 11/24/23 06:15 11/24/23 06:15 IV 15 mls/hr .Q48H NADEGE Administration PFSH Medical History History of echocardiogram Urinary incontinence Asthma BiPAP (biphasic positive airway pressure) dependence Wears glasses Post-menopausal Diabetes Psoriatic arthritis Arthritis Back pain Migraine headache Injury of head and neck Gastric reflux Former smoker Sleep apnea Shortness of breath on exertion History of pain when walking History of edema Hypertension History of stress test Cardiology follow-up encounter Elevated liver enzymes Type 2 diabetes mellitus Psoriatic arthritis Acute bronchitis Acute sinusitis Tobacco abuse Broken tooth Low oxygen saturation Weight gain Fatigue Flank pain Right flank pain Chest pain SOB (shortness of breath) Cough Vaginal discharge Breast pain Breast lump Breast abscess Costochondritis Left leg pain Neuralgia Biceps tendonitis Skin tag Actinic keratitis Acid reflux Mouth pain Aphthous stomatitis COPD with exacerbation Middle ear effusion Vitamin D deficiency Multiple nevi Nevus Zoster Snoring Hypoxemia Home Medications ?Medication ?Instructions ?Recorded ?Last Taken ?Type albuterol sulfate 2.5 mg/3 mL 2.5 mg inhalation Q4H PRN 05/10/17 Unknown History (0.083 %) solution for nebulization shortness of breath or wheezing albuterol sulfate 90 mcg/actuation 2 puff inhalation Q4H PRN 05/10/17 Unknown History aerosol inhaler (ProAir HFA) shortness of breath or wheezing montelukast 10 mg tablet 10 mg PO DAILY 11/09/21 Unknown History losartan 25 mg tablet 25 mg PO DAILY 06/17/22 11/24/23 03:30 History ixekizumab 80 mg/mL subcutaneous 80 mg subcut Q2W 11/15/22 Unknown History auto-injector ([employer] Autoinject[employer]) budesonide-formoterol HFA 160 2 puff inhalation BID #10.2 grams 02/24/23 Unknown Rx mcg-4.5 mcg/actuation aerosol inhaler (Symbicort) esomeprazole magnesium 40 mg 40 mg PO DAILY #30 caps 03/10/23 Unknown Rx capsule,delayed release (Nexium) ursodiol 300 mg capsule 300 mg PO BID #60 caps 07/10/23 Unknown Rx vitamin E (dl, acetate) 180 mg 180 mg PO BID #60 caps 07/17/23 Unknown Rx (400 unit) capsule famotidine 20 mg tablet 20 mg PO DAILY 10/27/23 Unknown History simethicone 180 mg capsule (Gas 180 mg PO BID PRN abdominal 10/27/23 Unknown Rx Relief (simethicone)) distention 1 month #60 caps pioglitazone 15 mg tablet (Actos) 15 mg PO DAILY 1 month #30 tabs 11/10/23 Unknown Rx cholecalciferol (vitamin D3) 25 25 mcg PO DAILY 11/19/23 Unknown History mcg (1,000 unit) capsule (Vitamin D3) metformin 500 mg tablet,extended 500 mg PO DAILY 11/19/23 Unknown History release 24 hr potassium 99 mg tablet 99 mg PO DAILY 11/19/23 Unknown History Allergy/AdvReac Type Severity Reaction Status Date / Time acetaminophen (From Allergy Severe Unknown Verified 11/24/23 06:11 Darvocet-N) Penicillins Allergy Severe Unknown Verified 11/24/23 06:11 propoxyphene (From Allergy Severe Unknown Verified 11/24/23 06:11 Darvocet-N) meperidine (From Demerol) Allergy Intermediate Hives Verified 11/24/23 06:11 hydromorphone (From Dilaudid) Allergy Hives Verified 11/24/23 06:11 Family History Father Hypertension Mother Diabetes Heart disease Sister Diabetes Heart disease Brother Cancer Surgical History History of liver biopsy History of hernia repair History of cholecystectomy Social History Smoking Status: Former smoker quit date: 06/12/15 pack-years: 33 second hand exposure: Yes alcohol intake: current alcohol intake frequency: a few times a month Alcohol type: wine substance use type: does not use caffeine: No what type of physical activity do you participate in: walking Review of Systems (Anesthesia) ROS Narrative System reviewed and no additional complaints, except as documented.
[2023-11-24 06:38] LABS: Bedside Glucose 128 mg/dL (74-106)
--- NOTE | 2023-11-24 07:00 | HP.PCM_ITS ---
HPI - General General Date of Admission: 11/24/23 Date of Service: 11/24/23 Chief Complaint: Diarrhea and cirrhosis HPI Narrative SHARA DOSS, is a 58 F who presents to the office today for follow up. SHARA DOSS, is a 57 F who presents to the office today for PMH DMII (A1c 6.2 10.29.); acid reflux; psoriatic arthritis (Humira start , prior to this she was using Tremfya for 6 months; HTN ([facility]) *BGI established 04.15.22 with referral from her PCP for evaluation of persistent elevated LFT. Values at referral time ALT 133, AST 77, alk phos and lipid profile WNL. CT abd/pel at [facility] 01.08.21 with normal liver findings. Biochemical workup HIV, CMP, LDH, coagulation, CBC, AMA, KD comp, IgGM, hepatitis, HOWARD, AFP, ANCA, ASM, ceruloplasmin, copper, haptoglobin, ammonia, PAOLA without pertinent abnormality. US RUQ and elastography 1.10.25 with hepatic measurement 19.8cm with stiffness 14kPa F4; increased pancreatic echogenicity. EGD .. LA grade A reflux esophagitis; bile gastritis; erythematous duodenopathy. H.Pylori negative. Liver Biopsy 06.28.22 consistent with cirrhosis with extensive macro/micovesicular steatosis; fibrous septae with moderate chronic inflammation, focal interface inflammation, iron deposit 1+ in hepatocytes, fibrous septae highlighted between hepatocyte nodules. OV 3.8.23 noting BM 1-2/day without confusion, sleepiness, pruritis, bleeding. start actos, ursodiol and Vitamin E. OV 6.16.23 she has been having bloating and gas pains; notes this is worse with vegetables, has increased cauliflower; sometimes GasX is helpful. Eats last meal around 5-6. Denies difficulty with confusion, sleep disturbance, balance, pruritis. Continues with ursodiol, actos and Vit E. She is reporting some increased anxiety in relation to her diagnosis; she will be discussing this with her PCP. OV 10.27.23 Pt doing well since last visit. Intermittent bloating usually diet related. Having 1-2 normal BM a day. Denies any other abdominal pain or discomfort. Continues to take Ursodiol, Vitamin E and Actos. Is asking if she needs to continue Actos, and if so if she needs to take Metformin with it. US abdomen and elastography 05.16.23- Liver measures 22cm 14.3 kPa OV 1.- Pt well since last visit. Has not had abdominal pain or bloating. BM remain 1-2 a day. Denies dizziness, and swelling. Feels more tired that usual. Has not problem sleeping at night but will feel tired even after a nap. Has gained about 8 pounds since February 2023. Denies confusion, unawareness or disorientation. 10.24.23 MELDna 7 OV 624- Pt states no changes since last visit. Reports increased gas with bloating. Has been having urgent BM 3-4 times a week. She also gets semisolid to liquid bowel movement mainly mucous generally 3 times per day. Has not determined any specific food triggers. Denies fatigue, dizziness or swelling. Also reports epigastric burning after meals. Continues with Nexium and Famotid ine. ROS Const Constitutional: Positive for fatigue and headache(s); No fever(s) or weight change ENT ENT: Positive for headache(s); No difficulty swallowing Resp Respiratory: Positive for other (Shortness of breath on exertion.); No wheezing Cardio Cardiology: Positive for dyspnea on exertion; No chest pain at rest Gastro GI: Positive for abdominal pain, bloating, diarrhea, heartburn, excessive flatus, nausea/dyspepsia and vomiting; No belching, change in bowel habits, change in stool character, coffee ground emesis, constipation, cramping, difficulty swallowing, feeling full early, incontinent of stools, Vomiting blood/hematemesis, Blood in stool, loose stools, Black,tarry stools, pain with swallowing or other Genitourinary-Female: No difficulty urinating or burning urination Musc Musculoskeletal: Positive for joint pain, back pain, joint swelling, numbness, stiffness, tingling and Arthritis Skin Skin: No yellowing of the eye or itchy eyes Neuro Neurology: Positive for headache(s), numbness, tingling and tremor(s) Psych Psychiatric: No anxiety and No depression Endo Endocrine: Positive for fatigue; No weight change Aller/Imm Allergy/Immunologic: No itchy eyes or wheezing Everardo/Lymp Hematologic/Lymphatic: Positive for easy bruising; No easy bleeding Exam Const General: cooperative, no acute distress and well developed Nutritional Appearance: obese Orientation: alert, awake and oriented x3 Other: BMI 56.1 kg/m? last time. Current 55.9 kg/m?. [facility] Head: normocephalic and atraumatic Nose: external nose normal Face and sinus: normal facial exam Mouth: moist mucous membranes Eyes Pupils: PERRL EOM: EOM intact bilaterally Neck Neck: normal visual inspection, no meningeal signs and trachea midline Carotids: no bruits Chest Chest palpation & inspection: normal inspection of the chest Resp Effort & Inspection: normal respiratory effort and symmetric chest movement Auscultation: Bilateral: Clear to Auscultation Cardio Palpation: normal PMI Rate: regular rate Rhythm: regular rhythm Heart Sounds: S1 normal and S2 normal GI Auscultation: normal bowel sounds Percussion: normal to percussion Palpation: soft, no hepatosplenomegaly and no guarding Other: Fat abdomen. No appreciable shifting dullness or fluid thrill.clinically seems no ascites. No tenderness or guarding or rigidity. General: bimanual renal exam normal bilaterally and bladder normal to inspection Other: Chronic urinary incontinence possible stress incontinence. Denies dysuria/burning micturition or other new symptoms of lower urinary tract. Musc Musculoskeletal: No joint tenderness, joint redness, joint warmth or decreased range of motion Thoracic/Lumbar Spine: thor and lumb spine abnorm to inspection Skin General: rashes and/or lesions noted, turgor normal and no erythema Wounds: wound noted Neuro General: patient alert, patient awake, patient oriented x3 and no focal motor deficits Speech: speech normal Motor: muscle tone normal throughout Extrem General: normal exam except as noted Psych Appearance: grossly normal Mood: congruent mood Affect: normal affect Attitude: cooperative Assessment and Plan Assessment and Plan (1) Cirrhosis: Status: Chronic Qualifiers: Hepatic cirrhosis type: other cirrhosis Qualified Code(s): K74.69 - Other cirrhosis of liver Plan: MELD Na score is 7. CPT A. No significant change in weight but lost about 1 pound. She has not shown any signs of decompensation including no ascites, encephalopathy, signs and symptoms of GI bleed or jaundice. She was started on therapy for LOMBARDI including ursodiol and pioglitazone. She is also on metformin 500 mg daily and .we agreed to 500 mg twice daily Last 2D echo in September 2022 in [place] was reviewed. EF 60 to 65% with normal wall motion. No significant valvular dysfunction. RV normal in size and systolic function. Estimated RVSP [address] Mays for restrictive lung disease due to obesity and uses CPAP 10 cm water and uses inhalers. Labs from October 2023 reviewed. Vitamin D 25-hydroxy 23. Liver chemistry normal. aFP in May 2023 is 4.1. Esophageal surveillance once a year and next to be in June 2022. Liver ultrasound with elastography from May 28 reviewed. Liver is enlarged 22 cm, increased fatty infiltration. No demonstrated mass. Median liver stiffness 14.3 kPa. CBD 8.2 mm status postcholecystectomy. Increased echogenicity of pancreas with no demonstrated pancreatic mass or cyst. Labs including triple phase CT scan ordered before next visit 3 months from the. Medication reconciliation done. (2) Morbid (severe) obesity due to excess calories: Status: Chronic (3) Diarrhea: Status: Chronic Plan: Patient has diarrhea ongoing for last 3 to 6 months. In July her time-released metformin once daily was changed to twice daily. She is also on ursodiol. Advised to hold ursodiol for 1 month and metformin for 2 weeks. Previous EGD shows bile gastritis and duodenopathy. Repeat EGD ordered. Colonoscopy ordered. Patient on PPI in the morning and famotidine in the evening. Simethicone ordered for gas relief. Stool test ordered. Orders: Orders Comprehensive Metabolic Profil 3 Months K74.69 - Other cirrhosis of liver, R19.7 - Diarrhea, unspecified CBC W/Diff, Automated 3 Months K74.69 - Other cirrhosis of liver, R19.7 - Diarrhea, unspecified Prothrombin Time w/INR 3 Months K74.69 - Other cirrhosis of liver, R19.7 - Diarrhea, unspecified AFP, Tumor Marker 3 Months K74.69 - Other cirrhosis of liver, R19.7 - Diarrhea, unspecified CT Abd/Pelvis W/WO Contrast 3 Months K74.69 - Other cirrhosis of liver, R19.7 - Diarrhea, unspecified CRP 3 Months K74.69 - Other cirrhosis of liver, R19.7 - Diarrhea, unspecified Pancreatic Elastase, Fecal 3 Months K74.69 - Other cirrhosis of liver, R19.7 - Diarrhea, unspecified Fecal Fat, Qualitative 3 Months K74.69 - Other cirrhosis of liver, R19.7 - Diarrhea, unspecified Stool Occult Blood iFOB 3 Months K74.69 - Other cirrhosis of liver, R19.7 - Diarrhea, unspecified Stool Lactoferrin/WBC 3 Months K58.9 - Irritable bowel syndrome without diarrhea, K74.69 - Other cirrhosis of liver, R19.7 - Diarrhea, unspecified CDIFF (PCR) 3 Months K74.69 - Other cirrhosis of liver, R19.7 - Diarrhea, unspecified ENTERIC PATHOGEN PANEL STOOL 3 Months K58.9 - Irritable bowel syndrome without diarrhea, K74.69 - Other cirrhosis of liver, R19.7 - Diarrhea, unspecified OVA+PARA w/Giardia EIA [id number] 3 Months K74.69 - Other cirrhosis of liver, R19.7 - Diarrhea, unspecified Calprotectin, Stool 3 Months K74.69 - Other cirrhosis of liver, R19.7 - Diarrhea, unspecified Medications: New simethicone (Gas Relief (simethicone)) 180 mg PO BID 1 month PRN 60 caps 0RF abdominal distention On Hold metformin Hold Comment: Order Changed 500 mg PO BID 1 month 60 tabs 4RF ursodiol Hold Comment: Order Changed 300 mg PO BID 60 caps 11RF I have examined the patient and the H&P has been reviewed. There are no clinical changes since date of exam. [facility] Medical History History of echocardiogram Urinary incontinence Asthma BiPAP (biphasic positive airway pressure) dependence Wears glasses Post-menopausal Diabetes Psoriatic arthritis Arthritis Back pain Migraine headache Injury of head and neck Gastric reflux Former smoker Sleep apnea Shortness of breath on exertion History of pain when walking History of edema Hypertension History of stress test Cardiology follow-up encounter Elevated liver enzymes Type 2 diabetes mellitus Psoriatic arthritis Acute bronchitis Acute sinusitis Tobacco abuse Broken tooth Low oxygen saturation Weight gain Fatigue Flank pain Right flank pain Chest pain SOB (shortness of breath) Cough Vaginal discharge Breast pain Breast lump Breast abscess Costochondritis Left leg pain Neuralgia Biceps tendonitis Skin tag Actinic keratitis Acid reflux Mouth pain Aphthous stomatitis COPD with exacerbation Middle ear effusion Vitamin D deficiency Multiple nevi Nevus Zoster Snoring Hypoxemia Home Medications ?Medication ?Instructions ?Recorded ?Last Taken ?Type albuterol sulfate 2.5 mg/3 mL 2.5 mg inhalation Q4H PRN 05/10/17 Unknown History (0.083 %) solution for nebulization shortness of breath or wheezing albuterol sulfate 90 mcg/actuation 2 puff inhalation Q4H PRN 05/10/17 Unknown History aerosol inhaler (ProAir HFA) shortness of breath or wheezing montelukast 10 mg tablet 10 mg PO DAILY 11/09/21 Unknown History losartan 25 mg tablet 25 mg PO DAILY 06/17/22 11/24/23 03:30 History ixekizumab 80 mg/mL subcutaneous 80 mg subcut Q2W 11/15/22 Unknown History auto-injector (Taltz Autoinjector) budesonide-formoterol HFA 160 2 puff inhalation BID #10.2 grams 02/24/23 Unknown Rx mcg-4.5 mcg/actuation aerosol inhaler (Symbicort) esomeprazole magnesium 40 mg 40 mg PO DAILY #30 caps 03/10/23 Unknown Rx capsule,delayed release (Nexium) ursodiol 300 mg capsule 300 mg PO BID #60 caps 07/10/23 Unknown Rx vitamin E (dl, acetate) 180 mg 180 mg PO BID #60 caps 07/17/23 Unknown Rx (400 unit) capsule famotidine 20 mg tablet 20 mg PO DAILY 10/27/23 Unknown History simethicone 180 mg capsule (Gas 180 mg PO BID PRN abdominal 10/27/23 Unknown Rx Relief (simethicone)) distention 1 month #60 caps pioglitazone 15 mg tablet (Actos) 15 mg PO DAILY 1 month #30 tabs 11/10/23 Unknown Rx cholecalciferol (vitamin D3) 25 25 mcg PO DAILY 11/19/23 Unknown History mcg (1,000 unit) capsule (Vitamin D3) metformin 500 mg tablet,extended 500 mg PO DAILY 11/19/23 Unknown History release 24 hr potassium 99 mg tablet 99 mg PO DAILY 11/19/23 Unknown History Allergy/AdvReac Type Severity Reaction Status Date / Time acetaminophen (From Allergy Severe Unknown Verified 11/24/23 06:11 Darvocet-N) Penicillins Allergy Severe Unknown Verified 11/24/23 06:11 propoxyphene (From Allergy Severe Unknown Verified 11/24/23 06:11 Darvocet-N) meperidine (From Demerol) Allergy Intermediate Hives Verified 11/24/23 06:11 hydromorphone (From Dilaudid) Allergy Hives Verified 11/24/23 06:11 Family History Father Hypertension Mother Diabetes Heart disease Sister Diabetes Heart disease Brother Cancer Surgical History History of liver biopsy History of hernia repair History of cholecystectomy Social History Smoking Status: Former smoker quit date: 06/12/15 pack-years: 33 second hand exposure: Yes alcohol intake: current alcohol intake frequency: a few times a month Alcohol type: wine substance use type: does not use caffeine: No what type of physical activity do you participate in: walking Vital Signs Vital Signs Vital Signs: 11/24/23 06:12 11/24/23 06:12 11/24/23 06:34 Temperature 97.1 F L 97.1 F L Temperature Source Temporal Pulse Rate 83 83 Respiratory Rate 16 16 Respiratory Pattern Normal Blood Pressure 123/64 H 123/64 H Blood Pressure Mean 83 Blood Pressure Source Monitor Blood Pressure Position Semi-Fowlers Blood Pressure Location Right Arm Pulse Ox 92 92 Oxygen Delivery Method Room Air Weight Weight: 273 lb 5.971 oz Body Mass Index (BMI) 55.2 Results Lab / Micro Data Labs: Laboratory Results - last 24 hr 11/24/23 06:14: POC Glucose 128 H
--- NOTE | 2023-11-24 07:00 | COLBX_PTH ---
PATIENT: SHARA DOSS LOC: EN U#:[id number] AGE/SX: 58/F ROOM: RE11/24/[address]: Dr. Aman Bruce DO : 1965 BED: DIS: 11/24/2023 SPEC #: [id number] RECD: 11/24/23 12:34 STATUS: HARVEY IZABELAAnnie #: [id number] GILA: 11/24/23 07:[address]: Aman Bruce DEPT: SURGICAL PATHOLOGY RECD BY: Seven Stevens ENTERED: 11/24/23 13:38 SP TYPE: COLON BX OTHR DR: ANGELES Ferrell Tissues: A - Gastric mucous membrane B - Duodenum, NOS C - Ileum, NOS D - COLON BIOPSY Procedures: Surgery Specimen Level IV HEADER OPERATION: Colonoscopy, EGD biopsy PRE-OP DIAGNOSIS: Cirrhosis, morbid obesity due to excess calories, diarrhea TISSUE SUBMITTED: A- Gastric body biopsy, B- Duodenum biopsy, C- Terminal ileum biopsy, D- Random colon biopsy MICROSCOPIC DIAGNOSIS A. Gastric body, biopsy: Mild chronic gastritis. See comment. B. Duodenum, biopsy: No significant pathologic change. A fragment of benign gastric mucosa with mild chronic inflammation. C. Terminal ileum, biopsy: No pathologic change. D. Colon, random biopsy: No pathologic change. AM/ 11/25/2023 COMMENT A. The results of immunohistochemistry for Helicobacter pylori will be reported separately ([id number]). MICROSCOPIC DESCRIPTION Slides are reviewed. GROSS DESCRIPTION A. Received in fixative is one container labeled with the patient's name and designated Gastric body biopsy. The specimen consists of multiple irregular fragments of light montemayor soft tissue that in aggregate measure 1.2 x 0.3 x 0.1 cm. The specimen is totally submitted in one cassette. B. Received in fixative is one container labeled with the patient's name and designated Duodenum biopsy. The specimen consists of multiple irregular fragments of light montemayor soft tissue that in aggregate measure 1.0 x 0.5 x 0.1 cm. The specimen is totally submitted in one cassette. C. Received in fixative is one container labeled with the patient's name and designated Terminal ileum biopsy. The specimen consists of multiple irregular fragments of light montemayor soft tissue that in aggregate measure 1.0 x 0.3 x 0.1 cm. The specimen is totally submitted in one cassette. D. Received in fixative is one container labeled with the patient's name and designated Random colon biopsy. The specimen consists of multiple irregular fragments of light montemayor soft tissue that in aggregate measure 2.0 x 0.7 x 0.1 cm. The specimen is totally submitted in one cassette. SJ/mr 11/24/2023 TC:3 CPT:62181l3
--- NOTE | 2023-11-24 07:00 | IMM_PTH ---
PATIENT: SHARA DOSS LOC: EN U#:[id number] AGE/SX: 58/F ROOM: RE11/24/[address]: Dr. Aman Bruce DO : 1965 BED: DIS: 11/24/2023 SPEC #: [id number] RECD: 11/24/23 13:34 STATUS: HARVEY REQ #: [id number] GILA: 11/24/23 07:[address]: Aman Bruce DEPT: IMMUNOHISTOCHEMISTRY RECD BY: Bob Donis ENTERED: 11/24/23 13:34 SP TYPE: IMMUNO OTHR DR: ANGELES Ferrell Tissues: A - Gastric mucous membrane Procedures: H Pylori (initial) PHYSICIAN & INSTITUTION [place] [id number] SPECIMEN INFORMATION: Tissue Source: A- Gastric body Clinical Info: Cirrhosis, morbid obesity due to excess calories, diarrhea Specimen Number: [id number] CPT code: 74927 METHODOLOGY: Deparaffinized sections of prefer/formalin-fixed tissue or PAP/DQ stained slides are incubated with monoclonal/polyclonal antibodies/oligonucleotide probes. Localization is made via biotin free immunoperoxidase method. Appropriate controls are performed and reacted as expected. Results on target cell population are indicated in the following table: RESULTS: ANTIBODY / CLONE RESULT Block A H Pylori (polyclonal) negative These tests were developed and their performance characteristics determined by [facility]. They may not have been cleared or approved by the U.S. Food and Drug Administration. The FDA has determined that such clearance or approval is not necessary. The above immunohistochemical/dualISH markers are ordered and reviewed by the Pathologist. INTERPRETATION: A. Gastric body, biopsy: Negative for Helicobacter pylori organisms. BONIFACIO/ 11/25/2023
--- NOTE | 2023-11-24 07:38 | OP.CCLET_ITS ---
11/24/2023 Ema Swift Re : Upper GI endoscopy procedure for Patti Gibsonkim Swift This procedure was performed on Friday, November 24, 2023. My impressions and recommendations are as follows: Impressions : - Normal esophagus. - Portal hypertensive gastropathy. Biopsied. - Erythematous duodenopathy. Biopsied. - Bilious gastric fluid. Recommendations : - Discharge patient to home. - Resume previous diet. - Continue present medications. - Await pathology results. My findings are described in the full procedure note, which is enclosed. If I can be of further assistance, please feel free to contact me at . Sincerely, Aman Bruce, 11/24/2023 7:37:52 AM This report has been signed electronically.
--- NOTE | 2023-11-24 07:38 | OP.EGD_ITS ---
Patient Name: Patti Gage Procedure Date: 11/24/2023 7:05 AM Date of : 1965 Age: 58 Procedure: Upper GI endoscopy Indications: Epigastric abdominal pain, Cirrhosis with suspected esophageal varices Providers: Aman Bruce DO Medicines: Monitored Anesthesia Care Patient Profile: This is a 58 year old female. Refer to note in patient chart for documentation of history and physical. Patient has symptoms of chronic dyspepsia and chronic nausea. Complications: No immediate complications. Procedure: Pre-Anesthesia Assessment: - Prior to the procedure, a History and Physical was performed, and patient medications and allergies were reviewed. The patient is competent. The risks and benefits of the procedure and the sedation options and risks were discussed with the patient. All questions were answered and informed consent was obtained. Patient identification and proposed procedure were verified by the physician in the pre-procedure area. Mental Status Examination: alert and oriented. Airway Examination: normal oropharyngeal airway and neck mobility. Respiratory Examination: clear to auscultation. CV Examination: normal. Prophylactic Antibiotics: The patient does not require prophylactic antibiotics. Prior Anticoagulants: The patient has taken no anticoagulant or antiplatelet agents. After reviewing the risks and benefits, the patient was deemed in satisfactory condition to undergo the procedure. The anesthesia plan was to use monitored anesthesia care (MAC). Immediately prior to administration of medications, the patient was re-assessed for adequacy to receive sedatives. The heart rate, respiratory rate, oxygen saturations, blood pressure, adequacy of pulmonary ventilation, and response to care were monitored throughout the procedure. The physical status of the patient was re-assessed after the procedure. After obtaining informed consent, the endoscope was passed under direct vision. Throughout the procedure, the patient's blood pressure, pulse, and oxygen saturations were monitored continuously. The Colonoscope was introduced through the mouth, and advanced to the second part of duodenum. The upper GI endoscopy was accomplished without difficulty. The patient tolerated the procedure well. Scope In: 7:15:19 AM Scope Out: 7:18:31 AM Total Procedure Duration Time 0 hours 3 minutes 12 seconds Findings: The examined esophagus was normal. Moderate portal hypertensive gastropathy was found in the entire examined stomach. Biopsies were taken with a cold forceps for histology. Verification of patient identification for the specimen was done. Estimated blood loss was minimal. Biopsies were taken with a cold forceps for Helicobacter pylori testing. Verification of patient identification for the specimen was done. Patchy mildly erythematous mucosa without active bleeding and with no stigmata of bleeding was found in the duodenal bulb. Biopsies were taken with a cold forceps for histology. Verification of patient identification for the specimen was done. Estimated blood loss was minimal. Bilious fluid was found in the stomach. Impression: - Normal esophagus. - Portal hypertensive gastropathy. Biopsied. - Erythematous duodenopathy. Biopsied. - Bilious gastric fluid. Recommendation: - Discharge patient to home. - Resume previous diet. - Continue present medications. - Await pathology results. Procedure Code(s): --- Professional --- 99551, Esophagogastroduodenoscopy, flexible, transoral; with biopsy, single or multiple CPT copyright 2021 [employer]. All rights reserved. The codes documented in this report are preliminary and upon spiral weaver review may be revised to meet current compliance requirements. Aman Bruce DO 11/24/2023 7:37:52 AM This report has been signed electronically. Number of Addenda: 0 Note Initiated On: 11/24/2023 7:05 AM
--- NOTE | 2023-11-24 07:41 | OP.COLON_ITS ---
Patient Name: Patti Gage Procedure Date: 11/24/2023 7:18 AM Date of : 1965 Age: 58 Procedure: Colonoscopy Indications: Clinically significant diarrhea of unexplained origin Providers: Aman Bruce DO Medicines: Monitored Anesthesia Care Patient Profile: This is a 58 year old female. Refer to note in patient chart for documentation of history and physical. Patient has symptoms of chronic dyspepsia and chronic nausea. Last Colonoscopy: date unknown. Unable to locate last colonoscopy report. Complications: No immediate complications. Procedure: Pre-Anesthesia Assessment: - Prior to the procedure, a History and Physical was performed, and patient medications and allergies were reviewed. The patient is competent. The risks and benefits of the procedure and the sedation options and risks were discussed with the patient. All questions were answered and informed consent was obtained. Patient identification and proposed procedure were verified by the physician in the pre-procedure area. Mental Status Examination: alert and oriented. Airway Examination: normal oropharyngeal airway and neck mobility. Respiratory Examination: clear to auscultation. CV Examination: normal. Prophylactic Antibiotics: The patient does not require prophylactic antibiotics. Prior Anticoagulants: The patient has taken no anticoagulant or antiplatelet agents. After reviewing the risks and benefits, the patient was deemed in satisfactory condition to undergo the procedure. The anesthesia plan was to use monitored anesthesia care (MAC). Immediately prior to administration of medications, the patient was re-assessed for adequacy to receive sedatives. The heart rate, respiratory rate, oxygen saturations, blood pressure, adequacy of pulmonary ventilation, and response to care were monitored throughout the procedure. The physical status of the patient was re-assessed after the procedure. After I obtained informed consent, the scope was passed under direct vision. Throughout the procedure, the patient's blood pressure, pulse, and oxygen saturations were monitored continuously. The Colonoscope was introduced through the anus and advanced to the cecum, identified by appendiceal orifice and ileocecal valve. The colonoscopy was performed without difficulty. The patient tolerated the procedure well. The quality of the bowel preparation was adequate. The terminal ileum, ileocecal valve, appendiceal orifice, and rectum were photographed. Scope In: 7:20:36 AM Scope Withdrawal Time 0 hours 8 minutes 1 second Scope Out: 7:30:52 AM Total Procedure Duration Time 0 hours 10 minutes 16 seconds Findings: The perianal and digital rectal examinations were normal. Mild rectal prolapse was present. An area of mildly congested mucosa was found in the sigmoid colon, at the splenic flexure, in the transverse colon, at the hepatic flexure and in the ascending colon. A patchy area of the terminal ileum was congested. Biopsies were taken with a cold forceps for histology. Verification of patient identification for the specimen was done. Estimated blood loss was minimal. Impression: - Rectal prolapse. - Congested mucosa in the sigmoid colon, at the splenic flexure, in the transverse colon, at the hepatic flexure and in the ascending colon. - Congested mucosa in the terminal ileum. Biopsied. Recommendation: - Discharge patient to home. - Resume previous diet. - Continue present medications. - Await pathology results. - Repeat colonoscopy in 5 years for surveillance based on pathology results. Procedure Code(s): --- Professional --- 92386, Colonoscopy, flexible; with biopsy, single or multiple CPT copyright 2021 [employer]. All rights reserved. The codes documented in this report are preliminary and upon remote coders review may be revised to meet current compliance requirements. Aman Bruce DO 11/24/2023 7:41:29 AM This report has been signed electronically. Number of Addenda: 0 Note Initiated On: 11/24/2023 7:18 AM
--- NOTE | 2023-11-24 07:41 | OP.CCLET_ITS ---
11/24/2023 Ema Swift Re : Colonoscopy procedure for Patti Swift This procedure was performed on Friday, November 24, 2023. My impressions and recommendations are as follows: Impressions : - Rectal prolapse. - Congested mucosa in the sigmoid colon, at the splenic flexure, in the transverse colon, at the hepatic flexure and in the ascending colon. - Congested mucosa in the terminal ileum. Biopsied. Recommendations : - Discharge patient to home. - Resume previous diet. - Continue present medications. - Await pathology results. - Repeat colonoscopy in 5 years for surveillance based on pathology results. My findings are described in the full procedure note, which is enclosed. If I can be of further assistance, please feel free to contact me at . Sincerely, Aman Bruce, 11/24/2023 7:41:29 AM This report has been signed electronically.
--- NOTE | 2023-11-24 07:44 | PCM.POST.ANE ---
Anesthesia: Postop Eval I Current Vital Signs Temperature: 98.3 F Pulse Rate: 77 Blood Pressure: 113/101 Respiratory Rate: 16 Pulse Ox: 97 Oxygen Delivery Method: Room Air Assessment Airway patent: Yes Spontaneous unlabored respirations: Yes Mental status: Awake and Calm nausea: No Vomiting: No Anesthesia Complication: No Fluid Hydration Crystalloid volume administer (ml): 500 Total IV fluid infused: 500 Progress Note Anesthesia document: Postop Eval 1 completed: Yes
--- NOTE | 2023-11-24 14:49 | PCM.POSTANE2 ---
Anesthesia Postop Eval I Sum Postop Eval Completion status Anesthesia document: Postop Eval 1 completed: Yes Anesthesia Postop Eval I Summary Anesthesia Postop Eval I Summary: Anesthesia Postop Eval I: Assessment Summary Airway patent Yes 11/24/23 07:45 [email or web address] Spontaneous unlabored Yes 11/24/23 07:45 [email or web address] respirations Mental status Awake,Calm 11/24/23 07:45 [email or web address] nausea No 11/24/23 07:45 [email or web address] Vomiting No 11/24/23 07:45 [email or web address] Anesthesia Postop Eval I: Fluid Summary Crystalloid volume administer 500 11/24/23 07:45 [email or web address] (ml) Colloids volume administered ( ml) Blood Product volume administered (ml) Total IV fluid infused 500 11/24/23 07:45 [email or web address] Anesthesia Postop Eval I: Summary Notes Anesthesia Complication No 11/24/23 07:45 [email or web address] Anesthesia Complication Comment: Post-operative progress note Anesthesia: Postop Eval II Evaluation Mental status: Awake and Calm Pain Level: 0 nausea: No Vomiting: No Complications Anesthesia Complication: No
== END 2023-11-24 08:14 | disposition home or self-care (01) ==
LOC: EN 05:57 → AC 05:58
PROVIDERS: PCP Physician Assistant; Referring Provider Physician Assistant; Visit Provider Internal Medicine Gastroenterology
PROC: 0DJD8ZZ Inspection of Lower Intestinal Tract, Via Natural or Artificial Opening Endoscopic (ICD-10-PCS; CPT 45378; principal; 2023-11-24 06:55)
DX: K74.69 Other cirrhosis of liver (principal); K76.6 Portal hypertension; J44.9 Chronic obstructive pulmonary disease, unspecified; E66.01 Morbid (severe) obesity due to excess calories; E11.9 Type 2 diabetes mellitus without complications; Z87.891 Personal history of nicotine dependence; K21.00 Gastro-esophageal reflux disease with esophagitis, without bleeding; K63.89 Other specified diseases of intestine; Z79.51 Long term (current) use of inhaled steroids; Z79.84 Long term (current) use of oral hypoglycemic drugs; K62.3 Rectal prolapse; K75.81 Nonalcoholic steatohepatitis (NASH); K58.9 Irritable bowel syndrome, unspecified; R19.7 Diarrhea, unspecified; K31.89 Other diseases of stomach and duodenum; K29.50 Unspecified chronic gastritis without bleeding
CPT/HCPCS: 45380; 43239; 82962; 88305; 88342; J7120; J2405

== ENCOUNTER → 2024-03-29 | Outpatient (CLI) | payer OTHER, SELFPAY ==
[2024-03-29 14:53] LABS: Absolute Lymphocyte Count 1.86 X10^3/uL (0.83-4.51); Absolute Neutrophil Count 6.3 X10^3/uL (2.0-7.7); Basophil# 0.02 X10^3/uL; Basophil% 0.2 % (0-1); Eosinophil# 0.13 X10^3/uL; Eosinophils% 1.5 % (0-5); Hematocrit 41.1 % (37-47); Hemoglobin 13.4 g/dL (12.0-15.0); Lymphocyte # 1.86 X10^3/ul (0.83-4.51); Lymphocyte % 21.2 % (19-41); Mean Corp Hgb Conc 32.6 g/dL (32-36); Mean Corpuscular Hgb 27.2 pg (27.0-32.0); Mean Corpuscular Volume 83.4 fL (81-99); Mean Platelet Vol. 9.7 fl (6.2-12.0); Monocyte# 0.45 X10^3/uL; Monocyte% 5.1 % (0-10); NRBC Flagged by Analyzer 0 % (0-5); Neutrophil # 6.29 X10^3/uL (2.7-7.7); Neutrophil % 71.8 % (47-70); Platelet Count 255 K/mm3 (150-450); RBC Distribution Width CV 13.8 % (11.6-14.6); RBC Distribution Width SD 42.2 fl (35.1-43.9); Red Blood Count 4.93 M/mm3 (4.2-5.4); White Blood Count 8.8 K/mm3 (4.4-11.0)
[2024-03-29 15:07] LABS: Prothrombin Time (Protime)PT. 13.3 SECONDS (11.7-14.9)
[2024-03-29 15:20] LABS: ALB/GLOB Ratio 0.8 RATIO (0.9-2.4); AST(SGOT) 12 U/L (15-37); Alanine Aminotransfer ALT/SGPT 25 U/L (13-56); Albumin, Serum 3.5 g/dL (3.2-5.0); Alkaline Phosphatase 77 U/L (45-117); Anion Gap 5 (5-15); BUN 18 mg/dL (7-18); BUN/Creat Ratio 29.8 RATIO (10-20); CRP 7.05 mg/L (0.0-3.0); Calcium,Total 8.8 mg/dL (8.5-10.1); Chloride 103 mmol/L (98-107); EST Glomerular Filtration Rate 109 mL/min (>60); Est Glom Filt Rate - Afr Amer 132 mL/min (>60); Globulin 4.5 g/dL (2.2-4.2); Glucose 129 mg/dL (74-106); Potassium 3.6 mmol/L (3.5-5.1); Sodium Level 137 mmol/L (136-145)
[2024-03-29 16:43] LABS: Hemoglobin A1c 5.7 % (3.8-5.6)
[2024-03-31 04:08] LABS: AFP, Tumor Marker 3.9 ng/mL (0.0-9.2)
[2024-03-31 12:09] LABS: QNTFERON TB Mitogen Value > 10.00 IU/mL (.); QNTFERON TB Nil Value 0 IU/mL (.); QNTFERON TB1+ Ag Value 0.08 IU/mL (.); QNTFERON TB2+ Ag Value 0.05 IU/mL (.); QNTIFERON TB Positive Criteria Negative (Negative)
== END | disposition home or self-care (01) ==
LOC: LAB 13:56
PROVIDERS: Physician Assistant Medical; PCP Physician Assistant; Referring Provider Internal Medicine; Visit Provider Internal Medicine
DX: L40.0 Psoriasis vulgaris (principal); L40.59 Other psoriatic arthropathy; Z79.899 Other long term (current) drug therapy
CPT/HCPCS: 36415; 80053; 82105; 83036; 85025; 85610; 86140; 86480

== ENCOUNTER → 2024-08-26 | Outpatient (CLI) | payer BC, SELFPAY ==
--- NOTE | 2024-08-26 17:42 | CT_ITS ---
PROCEDURE: ABDOMEN W/WO IV CONTRAST 08/26/2024 REASON FOR EXAM: CIRRHOSIS, LOMBARDI, DIARRHEA TECHNIQUE: Abdomen CT with intravenous contrast. Coronal and Sagittal reconstruction series were provided. One or more dose reduction techniques were used (e.g., Automated exposure control, adjustment of the mA and/or kV according to patient size, use of iterative reconstruction technique. PATIENT PREPARATION: Per protocol ORAL CONTRAST TYPE: None. AMOUNT: mL FINDINGS: Lung bases: Lung bases are clear. Liver: Normal size. No mass. Gallbladder: Surgically absent. Spleen: Normal size. Pancreas: Normal size without evidence of mass surrounding inflammation or ductal dilation. Adrenals: Unremarkable. Kidneys: Normal renal sizes. No hydronephrosis. Bowel: Unremarkable. Lymph nodes: Unremarkable. Vasculature: Unremarkable. Peritoneum / Retroperitoneum: Unremarkable. Bones: Unremarkable. CT/Abdomen W/WO IV Contrast IMPRESSION: NO ACUTE FINDINGS AT THE ABDOMEN ON CONTRAST-ENHANCED CT. THIS PROTOCOL DOES N OT INCLUDE THE PELVIS. Reading Location: [id number]
[2024-08-26 18:06] LABS: CREATININE FINGERSTICK < 1.0 mg/dL (0.55-1.02); EGFR FINGERSTICK > 60.0000 mL/min (>60)
== END | disposition home or self-care (01) ==
LOC: CT 17:40
PROVIDERS: PCP Physician Assistant; Referring Provider Internal Medicine; Visit Provider Internal Medicine
DX: R19.7 Diarrhea, unspecified (principal); K74.69 Other cirrhosis of liver; E66.01 Morbid (severe) obesity due to excess calories
CPT/HCPCS: 74170; Q9967

== ENCOUNTER → 2024-09-22 | Outpatient (CLI) | payer BC, SELFPAY ==
[2024-09-22 15:46] LABS: Absolute Lymphocyte Count 1.89 X10^3/uL (0.83-4.51); Absolute Neutrophil Count 5.3 X10^3/uL (2.0-7.7); Basophil# 0.02 X10^3/uL; Basophil% 0.2 % (0-1); Eosinophil# 0.16 X10^3/uL; Hematocrit 40.5 % (37-47); Hemoglobin 13.3 g/dL (12.0-15.0); Lymphocyte # 1.89 X10^3/ul (0.83-4.51); Lymphocyte % 23.6 % (19-41); Mean Corp Hgb Conc 32.8 g/dL (32-36); Mean Corpuscular Hgb 27.5 pg (27.0-32.0); Mean Corpuscular Volume 83.9 fL (81-99); Mean Platelet Vol. 9.7 fl (6.2-12.0); Monocyte# 0.66 X10^3/uL; Monocyte% 8.2 % (0-10); NRBC Flagged by Analyzer 0 % (0-5); Neutrophil # 5.27 X10^3/uL (2.7-7.7); Neutrophil % 65.8 % (47-70); Platelet Count 200 K/mm3 (150-450); RBC Distribution Width CV 13.3 % (11.6-14.6); RBC Distribution Width SD 40.9 fl (35.1-43.9); Red Blood Count 4.83 M/mm3 (4.2-5.4)
[2024-09-22 16:16] LABS: Prothrombin Time (Protime)PT. 13.2 SECONDS (11.7-14.9)
[2024-09-23 11:15] LABS: ALB/GLOB Ratio 1.1 RATIO (0.9-2.4); AST(SGOT) 21 U/L (<=31); Alanine Aminotransfer ALT/SGPT 20 U/L (<=34); Albumin, Serum 4.1 g/dL (3.5-5.0); Alkaline Phosphatase 79 U/L (35-104); Anion Gap 12 (5-15); BUN 16 mg/dL (4-19); BUN/Creat Ratio 25.2 RATIO (10-20); CRP 4.81 mg/L (0.0-3.0); Calcium,Total 8.9 mg/dL (7.6-11.0); Carbon Dioxide 25.4 mmol/L (21.0-32.0); Chloride 101 mmol/L (98-108); Cholesterol 176 mg/dL (<=200); Creatinine, Serum 0.62 mg/dL (0.70-1.20); EST Glomerular Filtration Rate 104 (>60); Globulin 3.6 g/dL (2.2-4.2); Glucose 91 mg/dL (70-99); High Density Lipoprotein 55 mg/dL; Low Density Lipoprotein Calc. 87 mg/dL; Potassium 3.8 mmol/L (3.3-5.1); Protein, Total 7.7 g/dL (5.9-8.4); Sodium Level 138 mmol/L (133-145); Triglycerides 170 mg/dL; Very Low Density Lipoprotein 34 mg/dL (5-40); Vitamin D,25 Hydroxy 37.2 ng/mL (30-100); cholesterol:hdl ratio screen 3.18
[2024-09-23 12:54] LABS: Hemoglobin A1c 5.8 % (<=5.6)
[2024-09-24 04:07] LABS: AFP, Tumor Marker 3.9 ng/mL (0.0-9.2)
[2024-09-24 15:08] LABS: ANTINUCLEAR ANTIBODIES DIRECT Negative (Negative)
== END | disposition home or self-care (01) ==
LOC: LAB 14:43
PROVIDERS: PCP Physician Assistant; Referring Provider Internal Medicine; Visit Provider Internal Medicine
DX: E66.01 Morbid (severe) obesity due to excess calories (principal); K74.69 Other cirrhosis of liver; Z68.42 Body mass index [BMI] 45.0-49.9, adult; K21.9 Gastro-esophageal reflux disease without esophagitis
CPT/HCPCS: 36415; 80053; 80061; 82105; 82306; 83036; 85025; 85610; 86038; 86140; 86225

== ENCOUNTER → 2025-01-29 | Outpatient (CLI) | payer BC, SELFPAY ==
--- OUTSIDE RECORDS SUMMARY | 2025-01-13 13:46 | XMS RPT_ITS ---
Author Name Auto Generated Organization [facility] Care Team Providers Care Spinner Tender Name Role Phone DEMETRI REYNA Primary Care Unavailable DEMETRI REYNA Attending Unavailable REYNA, DEMETRI J Admitting Unavailable REYNA, DEMETRI J Primary Care Unavailable REYNA, DEMETRI J Consulting Unavailable PROVIDER, UNKNOWN Consulting Unavailable REYNA, DEMETRI J Admitting Unavailable REYNA, DEMETRI J Primary Care Unavailable REYNA, DEMETRI J Consulting Unavailable REYNA, DEMETRI J Attending Unavailable PROVIDER, UNKNOWN Consulting Unavailable VICKIE CHEN MD Admitting Unavailable VICKIE CHEN MD Primary Care Unavailable VICKIE CHEN MD Attending Unavailable REYNA, DEMETRI J Consulting Unavailable PROVIDER, UNKNOWN Consulting Unavailable PROBLEMS DATE TYPE CONDITION / CODE ATTENDING STATUS [facility] 07/24/2024 Admitting Diagnosis Family history of ischemic heart disease and other diseases of the circulatory system / Z82.49(ICD-10) NA [facility] 07/24/2024 Admitting Diagnosis Obstructive sleep apnea (adult) (pediatric) / G47.33(ICD-10) [facility] 07/24/2024 Admitting Diagnosis Type 2 diabetes mellitus without complications / E11.9(ICD-10) [facility] 07/24/2024 Admitting Diagnosis Morbid (severe) obesity due to excess calories (Multi) / E66.01(ICD-10) [facility] PROCEDURES No Procedure Records Found RESULTS HAND RT MIN 3 VIEWS Observed: 01/12/2025 11:05 AM Status: F Source: [place] [id number] Patient: SHARA DOSS Phone#: : 1965 Age: 59 Gender: F Pt. Type: Out Account: [id number] Location: [facility] Ordering: DEMETRI REYNA Exam Date: 01/12/2025/10:58 Family Phys: Charge Code: [id number] Physician: [place] Order #: [id number] Dose#: PROCEDURE: X-RAY HAND RT COMPLETE MIN 3 VIEWS COMPARISON: None. INDICATIONS: Psoriatic arthritis. FINDINGS: BONES: Degenerative changes are present at the interphalangeal joints and at the carpals. SOFT TISSUES: Soft tissues swelling is most marked the thumb, 2nd and 3rd digits. EFFUSION: None visible. OTHER: Negative. CONCLUSION: 1. There is no evidence of acute bone abnormality. Degenerative changes present. Dictated by: Kayley Estrada MD on 01/12/2025 at 12:40 Approved by: Kayley Estrada MD on 01/12/2025 at 12:41 FOOT COMPLETE RT Observed: 01/12/2025 11:05 AM Status: F Source: [place] [id number] Patient: SHARA DOSS Phone#: : 1965 Age: 59 Gender: F Pt. Type: Out Account: [id number] Location: 052 Ordering: DEMETRI RYENA Exam Date: 01/12/2025/11:02 Family Phys: Charge Code: 668245 Physician: [place] Order #: [id number] Dose#: PROCEDURE: X-RAY FOOT RT COMPLETE MIN 3 VIEWS COMPARISON: [facility], XR, FOOT RT COMPLETE, 12/09/2018, 1:39. INDICATIONS: Psoriatic arthritis. FINDINGS: BONES: Calcaneal spur and enthesophyte is present. There has been no significant change since previous exam. SOFT TISSUES: Dorsal soft tissue swelling is present. EFFUSION: None visible. OTHER: Negative. CONCLUSION: 1. There is no evidence of acute abnormality. Dictated by: Kayley Estrada MD on 01/12/2025 at 12:42 Approved by: Kayely Estrada MD on 01/12/2025 at 12:43 PHOSPHORUS Collected: 12:00 PM Status: F Source: [facility] TYPE CODE TESTS RESULT OUT OF RANGE REFERENCE UNITS LAB PHOSPHORUS(LOINC ) PHOSPHORUS 3.9 2.6 - 4.7 mg/dl Performed By: #### [id number] ## ## [place] [id number] MAGNESIUM Collected: 12:00 PM Status: F Source: [facility] TYPE CODE TESTS RESULT OUT OF RANGE REFERENCE UNITS LAB MAGNESIUM(LOINC) MAGNESIUM 2.0 1.8 - 2.4 mg/ dl Performed By: #### [id number] ## ## [facility],[address] [place], [place] [address] BMP WITH EGFR Collected: 5 12:00 PM Status: F Source: [facility] TYPE CODE TESTS RESULT OUT OF RANGE REFERENCE UNITS LAB BMP with eGFR(LOINC) BMP with eGFR Result Comment: BASIC METABO LIC PANEL LAB SODIUM(LOINC) SODIUM 138 136 - 145 mmol/l LAB POTASSIUM(LOINC ) POTASSIUM 3.8 3.5 - 5.1 mmol/L LAB CHLORIDE(LOINC) CHLORIDE 102 98 - 107 mmol/L LAB CO2(LOINC) CO2 31.7 21.0 - 32.0 mmol/L LAB GLUCOSE(INC) GLUCOSE 96 74 - 106 mg/dl LAB BUN(INC) BUN 15 7 - 18 mg/dl LAB CREATININE(LOIN C) CREATININE 0.56 0.55 - 1.02 mg/dl LAB CALCIUM(LOINC) CALCIUM 8.8 8.5 - 10.1 mg/dl LAB ANION GAP(INC) ANION GAP 8 Low 10 - 20 mmol/L LAB AGE(INC) AGE 59 years LAB eGFR(LOINC) eGFR >60 60 - 999 ML/MINUTE LAB eGFR(AA)(INC) eGFR(AA) >60 60 - 999 ML/MIN KARINA Result Comment: ACCORDING TO THE NATIONAL KIDNEY DISEASE EDUCATION PROGRAM(NKDE), A NORMAL eGFR IS A VALUE GREATER THAN OR EQUAL TO 60 ML/MIN/1.73 SQ METERS. CHRONIC KIDNEY DISEASE: <60mL/MIN/1.73 SQ METERS KIDNEY FAILURE: <15mL/MIN/1.73 SQ METERS THIS TEST SHOULD ONLY BE USED FOR PATIENTS 18 YEARS OF AGE AND OLDER. Performed By: #### [id number] ## ## [place] [address] LACTOFERRIN, QUALITATIVE, STOOL Observed: 10/13/2024 11:00 AM Status: F Source: [facility] LACTOFERRIN, QUALITATIVE, ST OOL { LEUKO EZ SAMANTHA NEGATIVE [NEGATIVE INTERNAL CONTROL PASS External Ctrl done? YES A negative or normal test result is consistent with a noninflammatory disease such as IBS. A positive or elevated result indicates the presence of intestinal inflammation; such inflammation is consistent with IBD. Performed By: #### [id number] ## ## [place] [address] C DIFF COMPLETE Observed: 10/13/2024 11:00 AM Status: F Source: [facility] C DIFF COMPLETE 0{ C-DIFF TOXIN _NEGATIVE__ (NRL: NEGATIVE ) 10/13/24.1637.LMM. C-DIFF AG NEGATIVE INTERNAL NEG QC PASS INTERNAL POS QC PASS EXTERNAL QC DONE? YES INTERPRETATION: POSITIVE Ag,POSITIVE Tox = C. Diff is present & producing toxins POSITIVE Ag,NEGATIVE Tox = C. Diff is present NEGATICE Ag,NEGATICE Tox = C. Diff is not present A low percentage of specimens may test negative for antigen but positive for toxin. A fresh specimen should be resumbitted for retesting. Performed By: #### [id number] ## ## [place] [id number] OVA & PARASITE EXAM [CCL] Collected: 11:00 AM Status: F Source: [facility] TYPE CODE TESTS RESULT OUT OF RANGE REFERENCE UNITS LAB OAPEXAM(LOINC) OVA AND PARASITE EXAM See Below Result Comment: OVA AND PARA SITE EXAM No Parasites Seen This test can not identify the presence of Cryptosporidium, Cyclospora or Cystoisospora (order CRYSPO); Microsporidia (order MICSPO) or consider ordering STGIPI (molecular test to detect common infectious causes of diarrhea). A single negative test result does not rule out a parasitic infection. Due to intermittent shedding of parasites, it is recommended that three specimens collected over a 7 day period are submitted to improve detection sensitivity. SOURCE: Stool [facility] [address] [place] [address] Edwardo Andrews III, M.D. [id number] Performed By: #### [id number] ## ## [place] [id number] ENTERIC BACTERIAL PANEL BY P CR [CCL] Collected: 10/13/2024 11:00 AM Status: F Source: [facility] TYPE CODE TESTS RESULT OUT OF RANGE REFERENCE UNITS LAB ENTERIC BACTERIAL PANEL BY PCR [CCL](LOINC) ENTERIC BACTERIAL PANEL BY PCR [CCL] Result Comment: _ENTERIC JAS TERIAL PANEL PCR [CCL]_ SEE SCANNED REPORT Performed By: #### [id number] ## ## [place] [id number] FECAL FAT, QUALITATIVE [CCL] Collected: 10/13/2024 11:00 AM Status: F Source: [facility] TYPE CODE TESTS RESULT OUT OF RANGE REFERENCE UNITS LAB FFATNE(LOINC) FAT, FECAL NEUTRAL Normal Normal LAB FFATSP(LOINC) FAT, FECAL SPLIT Normal Normal Result Comment: INTERPRETIVE INFORMATION: Fecal Fat Qualitative Neutral fats include the monoglycerides, diglycerides, and triglycerides while split fats are the free fatty acids that are liberated from them. Impaired synthesis or secretion of pancreatic enzymes or bile may cause an increase in neutral fats while an increase in split fats suggests impaired absorption of nutrients. Performed By: [facility] [address] [place] [id number] Die Mounter: Mingo Arce MD, PhD CLIA Number: [id number] [place] [address] [place] [address] Edwardo Andrews III, M.D. [id number] Performed By: #### [id number] ## ## [place] [id number] OCCULT BLOOD STOOL(NON-CANCE R SCREENING) Collected: 10/13/2024 11:00 AM Status: F Source: [facility] TYPE CODE TESTS RESULT OUT OF RANGE REFERENCE UNITS LAB OCCULT BLOOD STOOL(LOINC) OCCULT BLOOD STOOL NEGATIVE [NEGATIVE Performed By: #### [id number] ## ## [address] [address] CRYPTOSPORIDIUM & GIARDIA AG EIA [CCL] Collected: 10/13/2024 11:00 AM Status: F Source: [facility] TYPE CODE TESTS RESULT OUT OF RANGE REFERENCE UNITS LAB CRYPTOAG(LOIN C) CRYPTOSPORIDIUM ANTIGENBY EIA See Below Negative Result Comment: CRYPTOSPORID IUM ANTIGEN BY EIA Negative for Cryptosporidium by EIA. GIARDIA ANTIGEN BY EIA Negative for Giardia lamblia by EIA. A single negative test result does not rule out a parasitic infection. Due to intermittent shedding of parasites, it is recommended that three specimens collected over a 7 day period are submitted to improve detection sensitivity. SOURCE: Stool [place] [address] [place] [address] Edwardo Andrews III, M.D. [id number] Performed By: #### [id number] ## ## [address] [address] CALPROTECTIN, FECAL [CCL] Collected: 11:00 AM Status: F Source: [facility] TYPE CODE TESTS RESULT OUT OF RANGE REFERENCE UNITS LAB CALPROTECTIN, FECAL [CCL](LOINC) CALPROTECTIN , FECAL [CCL] Result Comment: _CALPROTECTI N, FECAL [CCL]_ SEE SCANNED REPORT Performed By: #### [id number] ## ## [facility],[address] [place] [address] CT CARDIAC SCORING WO IV CONTRAST Observed: 07/24/2024 10:53 AM Status: F Source: [facility] Interpreted By: Diana Ramírez, STUDY: CT CARDIAC SCORING WO IV CONTRAST; 07/24/2024 11:18 am INDICATION: Signs/Symptoms:screening. COMPARISON: None. ACCESSION NUMBER(S): [id number] ORDERING CLINICIAN: INTERFACE UNSPECIFIELDPROVIDER TECHNIQUE: Using prospective ECG gating, limited CT scan of the chest for evaluation of coronary arteries was performed without intravenous contrast. Coronary calcium scoring was performed according to the method of Agatston. FINDINGS: The score and distribution of calcium in the coronary arteries is as follows: LM: 0. LAD: 8.8. LCx: 0. RCA: 0. Total: 8.8. The visualized segments of the lungs are normally expanded. Mild middle lobe and lingular consolidation/atelectasis and some areas of scarring/atelectasis bilateral lung bases. Mild diffuse bronchial wall thickening. The visualized mid/lower ascending thoracic aorta measures 3.9 cm in diameter. The heart is mildly enlarged. No significant pericardial effusion is present. No gross evidence of mediastinal or hilar lymphadenopathy is identified. Suspected fatty liver. Bones appear demineralized. Degenerative changes visualized spine. Multilevel bridging anterior osteophytes can be seen in the setting of ankylosing spondylitis and/or DISH. IMPRESSION: 1. Coronary artery calcium score of 8.8*. 2. Mild prominence ascending thoracic aorta up to 3.9 cm. 3. Additional findings as above. *Coronary artery calcium scoring may be helpful in predicting the risk for future coronary heart disease events. According to the [place] [employer] Clinical Expert Consensus Task Force, such testing provides important prognostic information in patients with more than one coronary heart disease risk factor. The coronary artery calcium score correlates with the annual risk of a non-fatal myocardial infarction or coronary heart disease . Coronary artery score Annual Risk 0-99 0.4% 100-399 1.3% >400 2.4% These three breakpoints correspond to lower, intermediate and high risk states for future coronary events. Such information should be used, along with appropriate clinical judgment, to make decisions regarding the intensity of risk factor management strategies to treat blood lipids and to modify other non-lipid coronary risk factors. Reference: [place] P et al. Circulation. 2007; 115:402-426 MACRO: None Signed by: Kodak Ramírez 07/26/2024 7:15 AM Dictation workstation: [id number] ALLERGIES DATE TYPE / CODE NAME / CODE REACTION SEVERITY SOURCE Drug Allergy/4160 96135(SNOMED CT) PENICILLINS (CLASS)/31893454(RX NORM) Moderate (Severity Modifier) (Qualifier Value) [facility] Drug Allergy/4160 37289(SNOMED CT) LIDOCAINE/44388155( RXNORM) SWELLING, ANAPHYLAXIS, RASH Moderate (Severity Modifier) (Qualifier Value) [facility] Drug Allergy/4160 30244(SNOMED CT) DILAUDID/90490585(R XNORM) Moderate (Severity Modifier) (Qualifier Value) [facility] Drug Allergy/4160 44925(SNOMED CT) DEMEROL/09577057(RX NORM) Moderate (Severity Modifier) (Qualifier Value) [facility] Drug Allergy/4160 32331(SNOMED CT) Darvocet/28470635(R XNORM) U [facility] SYSTEMIC/420 461991(SNOME D CT) ALLERGIES NOT ON FILE [facility] ENCOUNTERS ADMIT/DISCHARGE ACCOUNT NUMBER ADMITTING ENCOUNTER CLASS LOCATION SOURCE 01/13/2025 [id number] DEMETRI REYNA Ambulatory Building:[facility] 01/12/2025/01/13/20 [id number] DEMETRI REYNA Ambulatory Building:[facility] 10/13/2024/10/14/19 [id number] VICKIE CHEN MD Ambulatory Building:[facility] 07/24/2024/07/25/19 [id number] Ambulatory Building:[facility] PAYERS ENCOUNTER GUARANTOR PAYER SUBSCRIBER SOURCE 01/13/2025 SHARA Duarte [place]: [place] [id number]: () Primary Insurance:[employer] OUTPATIENTPolicy Number: [id number] Date:Plan Name:B2 CHIARAEAFlorida L LINTDOB: [id number] [place] [id number] [facility] 01/12/2025 CHIARAEAFlorida L LINTDOB: [place] [id number]: () Primary Insurance:[facility] [employer] OUTPATIENTPolicy Number: [id number] Date:Plan Name:B2 CHIARAEAFlorida L LINTDOB: [id number] [place] [id number] [facility] 10/13/2024 CHIARAEAFlorida L LINTDOB: [place] [id number]: () Primary Insurance:[facility] [employer] OUTPATIENTPolicy Number: [id number] Date:Plan Name:B2 CHIARAEAFlorida L LINTDOB: [id number] [place] [id number] [facility] 07/24/2024 CHIARAEAFlorida L [place]DOB: [place] [address]Qcm: () Primary Insurance:GENERIC COMMERCIALPolicy Number: [id number] Date:2023-05-05 CHIARAEAFlorida L LINTDOB: [id number] [place] [address]Lpa: () [facility]
--- OUTSIDE RECORDS SUMMARY | 2025-01-13 13:46 | XMS RPT_ITS ---
Author Name Auto Generated Organization OHIP Care Team Providers Care Sap Bi Developer Name Role Phone DEMETRI REYNA Primary Care [...] DATE TYPE CONDITION / CODE ATTENDING STATUS [facility] 07/24/2024 Admitting Diagnosis Family history of ischemic heart disease and other diseases of the circulatory system / Z82.49(ICD-10) NA [facility] 07/24/2024 Admitting Diagnosis Obstructive sleep apnea (adult) (pediatric) / G47.33(ICD-10) [facility] 07/24/2024 Admitting Diagnosis Type 2 diabetes mellitus without complications / E11.9(ICD-10) [facility] 07/24/2024 Admitting Diagnosis Morbid (severe) obesity due to excess calories (Multi) / E66.01(ICD-10) [facility] PROCEDURES No Procedure Records Found RESULTS HAND RT MIN 3 VIEWS Observed: 01/12/2025 11:05 AM Status: F Source: [place] [id number] Patient: SHARA DOSS Phone#: : 1965 Age: 59 Gender: F Pt. Type: Out Account: [id number] Location: [facility] Ordering: DEMETRI REYNA Exam Date: 01/12/2025/10:58 Family Phys: Charge Code: 357776 Physician: [place] Order #: [id number] Dose#: PROCEDURE: X-RAY HAND RT COMPLETE MIN [...] Observed: 01/12/2025 11:05 AM Status: F Source: [place] [id number] Patient: SHARA DOSS Phone#: : 1965 Age: 59 Gender: F Pt. Type: Out Account: [id number] Location: 052 Ordering: DEMETRI REYNA Exam Date: 01/12/2025/11:02 Family Phys: Charge Code: 077929 Physician: [place] Order #: [id number] Dose#: PROCEDURE: X-RAY FOOT RT COMPLETE MIN 3 VIEWS COMPARISON: [facility], XR, FOOT RT COMPLETE, 12/09/2018, 1:39. INDICATIONS: Psoriatic arthritis. FINDINGS: BONES: Calcaneal spur and enthesophyte is present. There has been no significant change since previous exam. SOFT TISSUES: Dorsal soft tissue swelling is present. EFFUSION: None visible. OTHER: Negative. CONCLUSION: 1. There is no evidence of acute abnormality. Dictated by: Kayley Estrada MD on 01/12/2025 at 12:42 Approved by: Kayley Estrada MD on 01/12/2025 at 12:43 PHOSPHORUS Collected: 12:00 PM Status: F Source: [facility] TYPE CODE TESTS RESULT OUT OF RANGE REFERENCE UNITS LAB PHOSPHORUS(LOINC ) PHOSPHORUS 3.9 2.6 - 4.7 mg/dl Performed By: #### [id number] ## ## [place] [address] MAGNESIUM Collected: 12:00 PM Status: F Source: [facility] TYPE CODE TESTS RESULT OUT OF RANGE REFERENCE UNITS LAB MAGNESIUM(LOINC) MAGNESIUM 2.0 1.8 - 2.4 mg/ dl Performed By: #### [id number] ## ## [facility],[address] [place], [place] [address] BMP WITH EGFR Collected: 5 12:00 PM Status: F Source: [facility] TYPE CODE TESTS RESULT OUT OF [...] OF AGE AND OLDER. Performed By: #### [id number] ## ## [place] [address] LACTOFERRIN, QUALITATIVE, STOOL Observed: 10/13/2024 11:00 AM Status: F Source: [facility] LACTOFERRIN, QUALITATIVE, ST OOL { LEUKO EZ SAMANTHA NEGATIVE [NEGATIVE INTERNAL CONTROL PASS External Ctrl done? YES A negative or normal test result is consistent with a noninflammatory disease such as IBS. A positive or elevated result indicates the presence of intestinal inflammation; such inflammation is consistent with IBD. Performed By: #### [id number] ## ## [place] [address] C DIFF COMPLETE Observed: 10/13/2024 11:00 AM Status: F Source: [facility] C DIFF COMPLETE 0{ C-DIFF TOXIN [...] be resumbitted for retesting. Performed By: #### [id number] ## ## [place] [id number] OVA & PARASITE EXAM [CCL] Collected: 11:00 AM Status: F Source: [facility] TYPE CODE TESTS RESULT OUT OF [...] submitted to improve detection sensitivity. SOURCE: [facility] [address] [place] [address] Edwardo Andrews III, M.D. [id number] Performed By: #### [id number] ## ## [place] [id number] ENTERIC BACTERIAL PANEL BY P CR [CCL] Collected: 10/13/2024 11:00 AM Status: F Source: [facility] TYPE CODE TESTS RESULT OUT OF RANGE REFERENCE UNITS LAB ENTERIC BACTERIAL PANEL BY PCR [CCL](LOINC) ENTERIC BACTERIAL PANEL BY PCR [CCL] Result Comment: _ENTERIC JAS TERIAL PANEL PCR [CCL]_ SEE SCANNED REPORT Performed By: #### [id number] ## ## [place] [id number] FECAL FAT, QUALITATIVE [CCL] Collected: 10/13/2024 11:00 AM Status: F Source: [facility] TYPE CODE TESTS RESULT OUT OF [...] suggests impaired absorption of nutrients. Performed By: [employer] [address] [place] [id number] Home Care Liaison: Mingo Arce MD, PhD CLIA Number: [id number] [place] [address] [place] [address] Edwardo Andrews III, M.D. [id number] Performed By: #### [id number] ## ## [place] [id number] OCCULT BLOOD STOOL(NON-CANCE R SCREENING) Collected: 10/13/2024 11:00 AM Status: F Source: [facility] TYPE CODE TESTS RESULT OUT OF RANGE REFERENCE UNITS LAB OCCULT BLOOD STOOL(LOINC) OCCULT BLOOD STOOL NEGATIVE [NEGATIVE Performed By: #### [id number] ## ## [address] [address] CRYPTOSPORIDIUM & GIARDIA AG EIA [CCL] Collected: 10/13/2024 11:00 AM Status: F Source: [facility] TYPE CODE TESTS RESULT OUT OF [...] submitted to improve detection sensitivity. SOURCE: [facility] [place] [address] [place] [address] Edwardo Andrews III, M.D. [id number] Performed By: #### [id number] ## ## [address] [address] CALPROTECTIN, FECAL [CCL] Collected: 11:00 AM Status: F Source: [facility] TYPE CODE TESTS RESULT OUT OF RANGE REFERENCE UNITS LAB CALPROTECTIN, FECAL [CCL](LOINC) CALPROTECTIN , FECAL [CCL] Result Comment: _CALPROTECTI N, FECAL [CCL]_ SEE SCANNED REPORT Performed By: #### [id number] ## ## [facility],[address] [place] [address] CT CARDIAC SCORING WO IV CONTRAST Observed: 07/24/2024 10:53 AM Status: F Source: [facility] Interpreted By: Diana Ramírez, STUDY: CT CARDIAC SCORING WO IV CONTRAST; 07/24/2024 11:18 am INDICATION: Signs/Symptoms:screening. COMPARISON: None. ACCESSION NUMBER(S): [id number] ORDERING CLINICIAN: INTERFACE UNSPECIFIELDPROVIDER TECHNIQUE: Using prospective [...] coronary heart disease events. According to the [place] [employer] Clinical Expert Consensus [...] modify other non-lipid coronary risk factors. Reference: [place] P et al. Circulation. 2007; 115:402-426 MACRO: None Signed by: Kodak Ramírez 07/26/2024 7:15 AM Dictation workstation: [id number] ALLERGIES DATE TYPE / CODE NAME / CODE REACTION SEVERITY SOURCE Drug Allergy/4160 56878(SNOMED CT) PENICILLINS (CLASS)/84439446(RX NORM) Moderate (Severity Modifier) (Qualifier Value) [facility] Drug Allergy/4160 95754(SNOMED CT) LIDOCAINE/73845414( RXNORM) SWELLING, ANAPHYLAXIS, RASH Moderate (Severity Modifier) (Qualifier Value) [facility] Drug Allergy/4160 90106(SNOMED CT) DILAUDID/07725927(R XNORM) Moderate (Severity Modifier) (Qualifier Value) [facility] Drug Allergy/4160 61684(SNOMED CT) DEMEROL/13591021(RX NORM) Moderate (Severity Modifier) (Qualifier Value) [facility] Drug Allergy/4160 01549(SNOMED CT) Darvocet/03293137(R XNORM) U [facility] SYSTEMIC/420 790496(SNOME D CT) ALLERGIES NOT ON FILE [facility] ENCOUNTERS ADMIT/DISCHARGE ACCOUNT NUMBER ADMITTING ENCOUNTER CLASS LOCATION SOURCE 01/13/2025 [id number] DEMETRI REYNA Ambulatory Building:[facility] 01/12/2025/01/13/20 [id number] DEMETRI REYNA Ambulatory Building:[facility] 10/13/2024/10/14/19 [id number] VICKIE CHEN MD Ambulatory Building:[facility] 07/24/2024/07/25/19 [id number] Ambulatory Building:[facility] PAYERS ENCOUNTER GUARANTOR PAYER SUBSCRIBER SOURCE 01/13/2025 SHARA Duarte [place]: [place] [id number]: () Primary Insurance:[employer] OUTPATIENTPolicy Number: [id number] Date:Plan Name:B2 CHIARAEAFlorida L LINTDOB: [id number] [place] [id number] [facility] 01/12/2025 CHIARAEAFlorida L LINTDOB: [place] [id number]: () Primary Insurance:[facility] [employer] [place] [employer] OUTPATIENTPolicy Number: [id number] Date:Plan Name:B2 CHIARAEAFlorida L LINTDOB: [id number] [place] [id number] [facility] 10/13/2024 CHIARAEAFlorida L LINTDOB: [place] [id number]: () Primary Insurance:[facility] [employer] [place] [employer] OUTPATIENTPolicy Number: [id number] Date:Plan Name:B2 CHIARAEAFlorida L LINTDOB: [id number] [place] [id number] [facility] 07/24/2024 CHIARAEAFlorida L [place]DOB: [place] [address]Nwg: () Primary Insurance:GENERIC COMMERCIALPolicy Number: [id number] ve Date:2023-05-05 CHIARAEAFlorida L LINTDOB: [id number] [place] [address]Pun: () [facility]
--- NOTE | 2025-01-29 08:41 | US_ITS ---
PROCEDURE: ABD LIMITED W/ ELASTOGRAPHY 01/29/2025 REASON FOR EXAM: CIRRHOSIS, ASCITES, ABDOMINAL SWELLING Elastography TECHNIQUE: Procedure Code: USABDLELPARO Modality: US Procedure: ABD LIMITED W/ ELASTOGRAPHY COMPARISON: CT from 08/26/2024, ultrasound from 05/16/2023 FINDINGS: Limited study due to obesity There is diffuse enlargement of the liver measuring 23.6 cm with diffuse fatty infiltration, no discrete lesion. Portal color flow is hepatopetal. Previous cholecystectomy, common bile duct measures 7 mm Visualized pancreas is sonographically normal Right kidney measures 11.9 cm without hydronephrosis, calculi or mass, cortex is normal at 1.1 cm Spleen is unremarkable, measuring 11.8 cm Elastography: Liver stiffness measures KPA of 8.4, with KPA% of 30.8 M/S 1.6, M/S% 15.2 Metavir score of F2 to F3, which represents an improvement compared to the previous study US/ABD Limited w/ Elastography IMPRESSION: Enlarged fatty liver without a discrete lesion, Metavir score of F 2- F 3 which represents an improvement compared to the previous study Remote cholecystectomy Reading Location: [id number]
--- NOTE | 2025-01-29 08:41 | US_ITS ---
PROCEDURE: ABD LIMITED W/ ELASTOGRAPHY 01/29/2025 REASON FOR EXAM: CIRRHOSIS, ASCITES, ABDOMINAL SWELLING Elastography TECHNIQUE: Procedure Code: USABDLELPARO Modality: US Procedure: ABD LIMITED W/ ELASTOGRAPHY COMPARISON: CT from 08/26/2024, ultrasound from 05/16/2023 FINDINGS: Limited study due to obesity There is diffuse enlargement of the liver measuring 23.6 cm with diffuse fatty infiltration, no discrete lesion. Portal color flow is hepatopetal. Previous cholecystectomy, common bile duct measures 7 mm Visualized pancreas is sonographically normal Right kidney measures 11.9 cm without hydronephrosis, calculi or mass, cortex is normal at 1.1 cm Spleen is unremarkable, measuring 11.8 cm Elastography: Liver stiffness measures KPA of 8.4, with KPA% of 30.8 M/S 1.6, M/S% 15.2 Metavir score of F2 to F3, which represents an improvement compared to the previous study US/ABD Limited w/ Elastography IMPRESSION: Enlarged fatty liver without a discrete lesion, Metavir score of F 2- F 3 which represents an improvement compared to the previous study Remote cholecystectomy Reading Location: [id number]
== END | disposition home or self-care (01) ==
LOC: US 08:40
PROVIDERS: PCP Physician Assistant; Referring Provider Internal Medicine; Visit Provider Internal Medicine
DX: E66.01 Morbid (severe) obesity due to excess calories (principal); K74.69 Other cirrhosis of liver; Z68.42 Body mass index [BMI] 45.0-49.9, adult; K21.9 Gastro-esophageal reflux disease without esophagitis
CPT/HCPCS: 76705; 76981